=== PATIENT | female | born 1975 | race Caucasian/White ===

== ENCOUNTER → 2016-03-20 | Outpatient (CLI) | payer OTHER ==
[~2016-03-20] MED LIST: /ACETCOD2T PO; BIOT50004 PO; CARA1TAB2 PO; CLONAZEPAM; CYPROHEPTADINE OR; EFFEXOR XR PO; HAIR SKIN AND NAILS OR; HYDR10EL PO; IBUP600T PO; IBUP80TA PO; KEPP500T6 PO; KLON1TAB PO; KLONOPIN PO; LAMO200T PO; LAMO50TA PO; LEVA750T PO; LORA2TAB PO; LYRI200C PO; LYRI225C PO; LYRI300C PO; MULTCAP PO; MULTTAB4 PO; NEUR100C PO; NEUR300C PO; OMEP40CA2 PO; PERC5TAB8 OR; PERC5TAB8 PO; PERCOCET; SERO200T2 PO; SERO400T PO; SERO50TA PO; SUBO8MIS SL; TIZA4TAB OR; TRAM50TA2 OR; ULTR50TA PO; VENL150C43 PO; VENL150T PO; VENL37TA PO; VICODIN; VOLT1GEL TOP; ZOLP-189 PO; [UNRECOGNIZED DRUG - OTHER]; effexor PO; effexor XR OR; epipen; pristiq PO; suboxone OR; tylenol #4; tylenol #4 OR
--- NOTE | 2016-04-16 01:19 | ECWPNPC ---
PATIENT NAME: HANANE RAPP : 1975 GENDER: FEMALE VISIT DATE: 03/20/2016 DISCHARGE DATE: 03/20/16 1538 VISIT LOCKED DATE TIME: PHYSICIAN: GUME CANO RESOURCE: GUME CANO REASON FOR APPOINTMENT 1. POST PROCEDURE- NECK/SHOULDERS/LBP HISTORY OF PRESENT ILLNESS HISTORY OF PRESENT ILLNESS: PAIN THE PATIENT DESCRIBES THE PAIN... FALL RISK SCREENING: SCREENING :NO FALLS IN THE PAST YEAR TODAY'S VISIT: NOTES: PT IS S/P TRIGGER POINT INJECTION 02/27/16. REPORTS PAIN RELIEF IN THE INJECTED AREAS FOR 2 WEEKS AND TIGHTNESS IS BEGINNING TO RETURN. RATES PAIN TODAY 8/10. NOTES SIGNIFICANT PAIN IN LOW BACK WITH RADIATION TO LEGS. HARD TO WALK. CURRENT MEDICATIONS TAKING QUETIAPINE FUMARATE 300 MG TABLET 1/2 TAB ORALLY DAILY, NOTES: 02/26/162199 TAKING SUBOXONE 8-2 MG FILM SUBLINGUAL BID, NOTES: 02/27/161199 TAKING VENTOLIN HFA 108 (90 BASE) MCG/ACT AEROSOL SOLUTION INHALATION DIRECTED, NOTES: NONE LATELY TAKING LAMOTRIGINE 200 MG TABLET 400MG IN AM/ 200 AT NIGHT ORAL , NOTES: 02/27/16 0800 TAKING SUCRALFATE 1 GM TABLET ORAL FOUR TIMES DAILY NEEDED, NOTES: 02/27/16 0800 TAKING IBUPROFEN 600 MG TABLET ORAL EVERY 6 HRS NEEDED, NOTES: 02/27/161199 TAKING GABAPENTIN 800 MG TABLET ORAL TID, NOTES: 02/27/161199 TAKING PRAZOSIN HCL 1 MG CAPSULE 5MG AND 1MG CAP FOR TOTAL OF 6MG DOSE ORAL BEDTIME, NOTES: 02/26/162199 TAKING VITAMIN D (ERGOCALCIFEROL) 41559 UNIT CAPSULE ORAL WEEKLY, NOTES: 02/23/16 TAKING OMEPRAZOLE 40 MG CAPSULE DELAYED RELEASE ORAL ONCE DAILY, NOTES: NONE LATELY TAKING LYRICA 200 MG CAPSULE 1 CAPSULE ORALLY THREE TIMES DAILY MDD=3, NOTES: 02/27/161199 TAKING TIZANIDINE HCL 4 MG TABLET 1 TABLET ORALLY THREE TIMES A DAY, NOTES: 02/27/161199 TAKING TOPAMAX 200 MG TABLET 1 TABLET ORALLY AT BEDTIME TAKING REXULTI 1 MG TABLET 1 TABLET ORALLY ONCE A DAY DISCONTINUED CYPROHEPTADINE HCL 1 MG TABLET 5 PILLS ORAL AT NIGHT, NOTES: 02/26/162199 DISCONTINUED LATUDA 80 MG TABLET 1 TABLET WITH FOOD ORALLY ONCE A DAY, NOTES: 02/26/162199 MEDICATION LIST REVIEWED AND RECONCILED WITH THE PATIENT PAST MEDICAL HISTORY RIGHT KNEE WORSENING ARTHRITIS ANXIETY / DEPRESSION / PTSD/ SUICIDE ATTEMPT AUGUST 2013 OPIATE ABUSE PSORIASIS FIBRAMYALGIA HARD OF HEARING ALLERGIES N.K.D.A. SOCIAL HISTORY GENERAL: TOBACCO USE ARE YOU A:NONSMOKER LEARNING BARRIERS / SPECIAL NEEDS ORIENTED TO PLAN OF CARE: PATIENT, PAIN MANAGEMENT PATIENT, ORIENTED TO PLAN OF CARE: PATIENT, PAIN MANAGEMENT PATIENT. NEW PATIENT PAIN DIARY TODAY'S VISITNOTES FROM 0-10, WHAT LEVEL IS YOUR PAIN TODAY?0 PAIN CLINIC PFS, CLERGY, PUBLIC HEALTH REFERRALS PFS REFERRAL NEEDED?NO CLERGY REFERRAL NEEDED?NO PUBLIC HEALTH REFERRAL NEEDED?NO WAS THE PROVIDER NOTIFIED OF ANY PERTINENT INFO?NO PFS REFERRAL NEEDED?NO CLERGY REFERRAL NEEDED?NO PUBLIC HEALTH REFERRAL NEEDED?NO WAS THE PROVIDER NOTIFIED OF ANY PERTINENT INFO?NO PAIN IS MORE IN THE NECK NOW AND NUMBNESS TO FINGERS ON BOTH HANDS, PAIN DOWN RIGHT SHOULDER. REVIEW OF SYSTEMS CONSTITUTIONAL: ANY CHANGE IN YOUR MEDICAL CONDITION? NO . CHILLS NO . FEVER NO . INFECTION: DO YOU HAVE NEW INFECTIONS? NO . DO YOU HAVE HISTORY OF MRSA? NO . MUSCULOSKELETAL: ANY NEW PATTERNS OF PAIN OR NUMBNESS? NO . GASTROENTEROLOGY: ANY NEW CHANGE IN BOWEL CONTROL? NO . GENITOURINARY: ANY NEW CHANGE IN BLADDER CONTROL? NO . IS THERE A CHANCE YOU COULD BE ? NO . HEMATOLOGY/LYMPH: DO YOU TAKE ANY BLOOD THINNERS? (FOR EXAMPLE- COUMADIN, PLAVIX, AGGRENOX, PLATEL, PRADAXA, OR XARELTO) NO . WHEN WAS YOUR LAST DOSE? DATE: TIME: . NEUROLOGY: HAVE YOU FALLEN IN THE PAST 6 MONTHS? NO . ANY NEW EXTREMITY NUMBNESS OR WEAKNESS? NO . CARDIOLOGY: DO YOU HAVE A PACEMAKER OR DEFIBRILLATOR? NO . RESPIRATORY: HAVE YOU BEEN SICK IN THE PAST WEEK? NO . FEVER NO . FLU LIKE SYMPTOMS? NO . COUGH NO . INTEGUMENTARY: DO YOU HAVE ANY RASHES OR OPEN SORES? NO . ALLERGIC/IMMUNO: ARE YOU ALLERGIC TO SHELLFISH OR IV DYE? NO . ANY NEW ALLERGIES? NO . PSYCHIATRIC: DO YOU HAVE THOUGHTS OF HURTING YOURSELF OR SOMEONE ELSE? NO . ARE YOU ABUSED, NEGLECTED, OR IN AN UNSAFE ENVIRONMENT? NO . ENDOCRINOLOGY: ARE YOU DIABETIC? NO . OTHER: DO YOU NEED ANY PRESCRIPTIONS? YES LYRICA . IF YES, PLEASE LIST: ____ . ANY NEW PROBLEMS WITH YOUR MEDICATIONS? NO . WHEN DID YOU LAST EAT? ____ . WHEN DID YOU LAST DRINK? ____ . WHAT DID YOU LAST DRINK? ____ . NAME OF PERSON DRIVING YOU HOME? ____ . DO YOU HAVE ANY OTHER QUESTIONS OR CONCERNS NO . REVIEWED BY: PROVIDER: GUME BUSBY . VITAL SIGNS WT 166.8 LBS, HT 61", BMI 31.51 INDEX, BP 108/69 MM HG, HR 62 /MIN, RR 16 /MIN, TEMP 97.5 F, OXYGEN SAT % 98, NA INITIALS TL 1502, REVIEWED BY: AD. EXAMINATION GENERAL EXAMINATION: PSYCHALERT , ORIENTED X 3 , APPROPRIATE MOOD AND AFFECT . LUNGS:CLEAR TO AUSCULTATION BILATERALLY. HEART:HEART RATE REGULAR. MUSCULOSKELETAL:MUSCLE STRENGTH TESTING 5/5 BILATERAL UPPER AND LOWER EXTREMITIES. POINT TENDERNESS OVER CERVICAL AND LUMBAR SPINOUS PROCESSES, WITH SPECIFIC TENDERNESS WITH PALPATION BILATRALLY AT THE SACRAL ILIAC JOINTS. POSITIVE NASIM SIGN NOTED BILATERALLY. SLOW TO RISE TO STANDING POSITION - GAIT ANTALGIC.. ASSESSMENTS MYALGIA - M79.1 (PRIMARY) SACROILIITIS - M46.1 TREATMENT MYALGIA STOP TIZANIDINE HCL TABLET, 4 MG, 1 TABLET, ORALLY, THREE TIMES A DAY, NOTES: 02/27/16 1200 START METHOCARBAMOL TABLET, 500 MG, 1 TAB, ORALLY, EVERY 8 HRS, 30 DAY(S), 90 TABLET, REFILLS 2 SACROILIITIS REFILL LYRICA CAPSULE, 200 MG, 1 CAPSULE, ORALLY, THREE TIMES DAILY MDD=3, 30 DAY(S), 90, REFILLS 3 INJECTION ANESTHETIC SACROILIAC JOINTGUME CANO 03/20/2016 3:20:53 PM > BILATERAL PREVENTIVE MEDICINE PAIN CLINIC TEACHING: PROCEDURE TEACHING PRINTED INFORMATION ON SIJ INJECTION GIVEN TO AND EXPLAINED TO PAT.. PROCEDURE CODES FA211 ESTABILISHED PATIENT [facility] FACILITY CHARGE FOLLOW UP AFTER INJECTION (REASON: CHECK AUTH FOR YEISON SIJ) ELECTRONICALLY SIGNED BY SUMI KIM ON 04/14/2016 AT 08:42 AM EST DISCLAIMER : THIS IS A VISIT SUMMARY EXTRACTED FROM THE [facility] CHART. IT IS NOT A COPY OF THE [facility] PROGRESS NOTE. MTDD
== END ==
LOC: M PAIN 15:00
PROVIDERS: ATTEND Nurse Practitioner Family
DX: Z09 Encounter for follow-up examination after completed treatment for conditions other than malignant neoplasm (principal); G89.29 Other chronic pain; M79.7 Fibromyalgia; M46.1 Sacroiliitis, not elsewhere classified; M17.11 Unilateral primary osteoarthritis, right knee; F41.9 Anxiety disorder, unspecified; F32.9 Major depressive disorder, single episode, unspecified; F43.10 Post-traumatic stress disorder, unspecified; L40.9 Psoriasis, unspecified; H90.5 Unspecified sensorineural hearing loss; Z79.1 Long term (current) use of non-steroidal anti-inflammatories (NSAID); Z86.59 Personal history of other mental and behavioral disorders; Z91.5 Personal history of self-harm

== ENCOUNTER → 2016-05-08 | Outpatient (CLI) | payer OTHER ==
--- NOTE | 2016-05-09 00:23 | ECWPNPC ---
PATIENT NAME: HANANE RAPP : 1975 GENDER: FEMALE VISIT DATE: 05/08/2016 DISCHARGE DATE: 05/08/16 1510 VISIT LOCKED DATE TIME: PHYSICIAN: GUME CANO RESOURCE: GUME ACNO REASON FOR APPOINTMENT 1. POST PROCEDURE HISTORY OF PRESENT ILLNESS HISTORY OF PRESENT ILLNESS: PAIN THE PATIENT DESCRIBES THE PAIN... FALL RISK SCREENING: SCREENING :NO FALLS IN THE PAST YEAR TODAY'S VISIT: NOTES: IS S/P SIJ 04/17/16 WITH 75% RELIEF. PAIN RADIATING TO LEGS IS IMPROVED. WAS ABLE TO SLEEP. WOULD LIKE TO REPEAT TPI TO LOW BACK AND SHOULDERS. NOTES DISCOMFORT AND PAIN ACROSS THE LOW BACK (WORST)AND AT THE NECK AND SHOULDERS. IS FRUSTRATED WITH HOW POORLY SHE FEELS. CURRENT MEDICATIONS TAKING QUETIAPINE FUMARATE 300 MG TABLET 1/2 TAB ORALLY DAILY TAKING SUBOXONE 8-2 MG FILM SUBLINGUAL BID TAKING LAMOTRIGINE 200 MG TABLET 400MG IN AM/ 200 AT NIGHT ORAL TAKING IBUPROFEN 600 MG TABLET ORAL EVERY 6 HRS NEEDED TAKING SUCRALFATE 1 GM TABLET ORAL FOUR TIMES DAILY NEEDED TAKING GABAPENTIN 800 MG TABLET ORAL TID TAKING PRAZOSIN HCL 1 MG CAPSULE 5MG AND 1MG CAP FOR TOTAL OF 6MG DOSE ORAL BEDTIME TAKING VITAMIN D (ERGOCALCIFEROL) [id number] UNIT CAPSULE ORAL WEEKLY TAKING OMEPRAZOLE 40 MG CAPSULE DELAYED RELEASE ORAL ONCE DAILY TAKING TOPAMAX 200 MG TABLET 1 TABLET ORALLY AT BEDTIME TAKING LYRICA 200 MG CAPSULE 1 CAPSULE ORALLY THREE TIMES DAILY MDD=3 TAKING METHOCARBAMOL 500 MG TABLET 1 TAB ORALLY EVERY 8 HRS NOT-TAKING VENTOLIN HFA 108 (90 BASE) MCG/ACT AEROSOL SOLUTION INHALATION DIRECTED NOT-TAKING REXULTI 1 MG TABLET 1 TABLET ORALLY ONCE A DAY MEDICATION LIST REVIEWED AND RECONCILED WITH THE PATIENT PAST MEDICAL HISTORY RIGHT KNEE WORSENING ARTHRITIS ANXIETY / DEPRESSION / PTSD/ SUICIDE ATTEMPT AUGUST 2013 OPIATE ABUSE PSORIASIS FIBRAMYALGIA HARD OF HEARING ALLERGIES N.K.D.A. SOCIAL HISTORY GENERAL: TOBACCO USE ARE YOU A:CURRENT SMOKER HOW MANY CIGARETTES A DAY DO YOU SMOKE?11-20 HOW SOON AFTER YOU WAKE UP DO YOU SMOKE YOUR FIRST CIGARETTE?WITHIN 5 MIN HOW OFTEN DO YOU SMOKE CIGARETTES?EVERY DAY PATIENT COUNSELED ON THE DANGERS OF TOBACCO USE AND URGED TO QUIT: COUNCELLED ON THE IMPORTANCE OF QUITTING ARE YOU INTERESTED IN QUITTING?NOT READY TO QUIT LEARNING BARRIERS / SPECIAL NEEDS ORIENTED TO PLAN OF CARE: PATIENT, PAIN MANAGEMENT PATIENT, ORIENTED TO PLAN OF CARE: PATIENT, PAIN MANAGEMENT PATIENT. NEW PATIENT PAIN DIARY TODAY'S VISITNOTES FROM 0-10, WHAT LEVEL IS YOUR PAIN TODAY?0 PAIN CLINIC PFS, CLERGY, PUBLIC HEALTH REFERRALS PFS REFERRAL NEEDED?NO CLERGY REFERRAL NEEDED?NO PUBLIC HEALTH REFERRAL NEEDED?NO WAS THE PROVIDER NOTIFIED OF ANY PERTINENT INFO?NO PFS REFERRAL NEEDED?NO CLERGY REFERRAL NEEDED?NO PUBLIC HEALTH REFERRAL NEEDED?NO WAS THE PROVIDER NOTIFIED OF ANY PERTINENT INFO?NO REVIEW OF SYSTEMS CONSTITUTIONAL: ANY CHANGE IN YOUR MEDICAL CONDITION? NO . CHILLS NO . FEVER NO . INFECTION: DO YOU HAVE NEW INFECTIONS? NO . DO YOU HAVE HISTORY OF MRSA? NO . MUSCULOSKELETAL: ANY NEW PATTERNS OF PAIN OR NUMBNESS? NO . GASTROENTEROLOGY: ANY NEW CHANGE IN BOWEL CONTROL? NO . GENITOURINARY: ANY NEW CHANGE IN BLADDER CONTROL? NO . IS THERE A CHANCE YOU COULD BE ? NO . HEMATOLOGY/LYMPH: DO YOU TAKE ANY BLOOD THINNERS? (FOR EXAMPLE- COUMADIN, PLAVIX, AGGRENOX, PLATEL, PRADAXA, OR XARELTO) NO . WHEN WAS YOUR LAST DOSE? DATE: TIME: . NEUROLOGY: HAVE YOU FALLEN IN THE PAST 6 MONTHS? NO . ANY NEW EXTREMITY NUMBNESS OR WEAKNESS? NO . CARDIOLOGY: DO YOU HAVE A PACEMAKER OR DEFIBRILLATOR? NO . RESPIRATORY: HAVE YOU BEEN SICK IN THE PAST WEEK? NO . FEVER NO . FLU LIKE SYMPTOMS? NO . COUGH NO . INTEGUMENTARY: DO YOU HAVE ANY RASHES OR OPEN SORES? NO . ALLERGIC/IMMUNO: ARE YOU ALLERGIC TO SHELLFISH OR IV DYE? NO . ANY NEW ALLERGIES? NO . PSYCHIATRIC: DO YOU HAVE THOUGHTS OF HURTING YOURSELF OR SOMEONE ELSE? NO . ARE YOU ABUSED, NEGLECTED, OR IN AN UNSAFE ENVIRONMENT? NO . ENDOCRINOLOGY: ARE YOU DIABETIC? NO . OTHER: DO YOU NEED ANY PRESCRIPTIONS? NO . IF YES, PLEASE LIST: ____ . ANY NEW PROBLEMS WITH YOUR MEDICATIONS? NO . WHEN DID YOU LAST EAT? ____ . WHEN DID YOU LAST DRINK? ____ . WHAT DID YOU LAST DRINK? ____ . NAME OF PERSON DRIVING YOU HOME? ____ . DO YOU HAVE ANY OTHER QUESTIONS OR CONCERNS NO . REVIEWED BY: PROVIDER: GUME BUSBY . VITAL SIGNS WT 163.8 LBS, HT 61", BMI 30.95 INDEX, BP 102/64 MM HG, HR 64 /MIN, RR 18 /MIN, TEMP 96.9 F, OXYGEN SAT % 96, NA INITIALS TL 1402, REVIEWED BY: AD. EXAMINATION GENERAL EXAMINATION: PSYCHALERT , ORIENTED X 3 , QUIET. LUNGS:BILATERAL WHEEZES, NO RALES. HEART:HEART RATE REGULAR. MUSCULOSKELETAL:MILD TENDERNESS OVER BILATERAL SIJ. , TRIGGER POINTS AND TIGHT FIBROUS BANDS IDENTIFIED OVER LUMBAR PARAVEREBRAL MUSCLES AND INTO THE SACRUM, WELL ACROSS THE TRAPEZIUS MUSCLES. DECREASED ROM WITH NECK FLEXION, EXTENSION AND ROTATION WELL AT LOW BACK. , MUSCLE STRENGTH TESTING 5/5 BILATERALUPPER AND LOWER EXTREMITIES. GAIT IS STIFF, WIDEBASED AND ANTALGIC. ASSESSMENTS MYALGIA - M79.1 (PRIMARY) SACROILIITIS - M46.1 TREATMENT MYALGIA TRIGGER POINT 3 + GUME CAMILO 05/08/2016 3:00:00 PM > LOW BACK NOTES: WALK DAILYDO SHOULDER EXERCISES DAILY. WORK WITH THERAPIST ON [facility] FOR PAIN CONTROL. PROCEDURE CODES FA211 ESTABILISHED PATIENT [facility] CHARGE DISPOSITION & COMMUNICATION FOLLOW UP SCHED FOR TPI LOW BACK AND THEN 2 WEEKS LATER TO NECK/SHOULDERS (REASON: CHECK AUTH FOR TPI TO LOW BACK AND 2 WEEKS LATER TO NECK) ELECTRONICALLY SIGNED BY SUMI KIM ON 05/08/2016 AT 04:23 PM EST DISCLAIMER : THIS IS A VISIT SUMMARY EXTRACTED FROM THE [facility] [employer] CHART. IT IS NOT A COPY OF THE [facility] [employer] PROGRESS NOTE. SUNNY
== END ==
LOC: M PAIN 14:00
PROVIDERS: ATTEND Nurse Practitioner Family
DX: Z09 Encounter for follow-up examination after completed treatment for conditions other than malignant neoplasm (principal); M46.1 Sacroiliitis, not elsewhere classified; M54.2 Cervicalgia; M79.1 Myalgia; M25.511 Pain in right shoulder; M54.5 Low back pain; M25.512 Pain in left shoulder; F41.9 Anxiety disorder, unspecified; F32.9 Major depressive disorder, single episode, unspecified; F43.10 Post-traumatic stress disorder, unspecified; F11.10 Opioid abuse, uncomplicated; M17.11 Unilateral primary osteoarthritis, right knee; L40.9 Psoriasis, unspecified; M79.7 Fibromyalgia; H91.90 Unspecified hearing loss, unspecified ear; F17.210 Nicotine dependence, cigarettes, uncomplicated; Z79.1 Long term (current) use of non-steroidal anti-inflammatories (NSAID); Z79.899 Other long term (current) drug therapy; Z91.5 Personal history of self-harm

== ENCOUNTER → 2016-06-17 | Outpatient (CLI) | payer OTHER ==
[~2016-06-17] MED LIST changes: +BUPIVACAINE HCL 0.25% 10 ML VIAL As Ordered ONE; +BUPIVACAINE HCL 0.25% 30 ML VIAL As Ordered ONE; +TRIAMCINOLONE ACETONIDE SUSP 40 MG/ML VIAL (J3301) As Ordered ONE; +diazePAM 5 MG TAB As Ordered ONE
--- NOTE | 2016-06-29 00:22 | ECWPNPC ---
PATIENT NAME: HANANE RAPP : 1975 GENDER: FEMALE VISIT DATE: 06/17/2016 DISCHARGE DATE: 06/17/16 1553 VISIT LOCKED DATE TIME: PHYSICIAN: MARY LOU ISLAS RESOURCE: MARY LOU ISLAS REASON FOR APPOINTMENT 1. SHOULDERS HISTORY OF PRESENT ILLNESS HISTORY OF PRESENT ILLNESS: PAIN THE PATIENT DESCRIBES THE PAIN... FALL RISK SCREENING: SCREENING :NO FALLS IN THE PAST YEAR CURRENT MEDICATIONS TAKING SUBOXONE 8-2 MG FILM SUBLINGUAL BID, NOTES: 06/17/16 0800 TAKING LAMOTRIGINE 200 MG TABLET 400MG IN AM/ 200 AT NIGHT ORAL , NOTES: 06/17/16 08 TAKING IBUPROFEN 600 MG TABLET ORAL EVERY 6 HRS NEEDED, NOTES: 06/17/16 08 TAKING SUCRALFATE 1 GM TABLET ORAL FOUR TIMES DAILY NEEDED, NOTES: NONE RECENT TAKING GABAPENTIN 800 MG TABLET ORAL TID, NOTES: 06/17/16 08 TAKING PRAZOSIN HCL 1 MG CAPSULE 5MG AND 1MG CAP FOR TOTAL OF 6MG DOSE ORAL BEDTIME, NOTES: 06/16/16 2300 TAKING VITAMIN D (ERGOCALCIFEROL) [id number] UNIT CAPSULE ORAL WEEKLY, NOTES: 06/14/16 TAKING OMEPRAZOLE 40 MG CAPSULE DELAYED RELEASE ORAL ONCE DAILY PRN, NOTES: NONE RECENT TAKING TOPAMAX 200 MG TABLET 1 TABLET ORALLY IN A.M. & AT BEDTIME, NOTES: 06/17/16 08 TAKING LYRICA 200 MG CAPSULE 1 CAPSULE ORALLY THREE TIMES DAILY MDD=3, NOTES: 06/17/16 08 TAKING METHOCARBAMOL 500 MG TABLET 1 TAB ORALLY EVERY 8 HRS, NOTES: 06/17/16 08 NOT-TAKING VENTOLIN HFA 108 (90 BASE) MCG/ACT AEROSOL SOLUTION INHALATION DIRECTED NOT-TAKING REXULTI 1 MG TABLET 1 TABLET ORALLY ONCE A DAY DISCONTINUED QUETIAPINE FUMARATE 300 MG TABLET 1/2 TAB ORALLY DAILY MEDICATION LIST REVIEWED AND RECONCILED WITH THE PATIENT PAST MEDICAL HISTORY RIGHT KNEE WORSENING ARTHRITIS ANXIETY / DEPRESSION / PTSD/ SUICIDE ATTEMPT AUGUST 2013 OPIATE ABUSE PSORIASIS FIBRAMYALGIA HARD OF HEARING ALLERGIES N.K.D.A. SOCIAL HISTORY GENERAL: TOBACCO USE ARE YOU A:CURRENT SMOKER HOW MANY CIGARETTES A DAY DO YOU SMOKE?21-30 HOW SOON AFTER YOU WAKE UP DO YOU SMOKE YOUR FIRST CIGARETTE?WITHIN 5 MIN HOW OFTEN DO YOU SMOKE CIGARETTES?EVERY DAY PATIENT COUNSELED ON THE DANGERS OF TOBACCO USE AND URGED TO QUIT:06/17/2016 ARE YOU INTERESTED IN QUITTING?NOT READY TO QUIT COUNSELED THE PATIENT ON SMOKING EFFECTS, EDUCATION [id number] PAIN CLINIC PFS, CLERGY, PUBLIC HEALTH REFERRALS CLERGY REFERRAL NEEDED?NO WAS THE PROVIDER NOTIFIED OF ANY PERTINENT INFO?NO PFS REFERRAL NEEDED?NO PUBLIC HEALTH REFERRAL NEEDED?NO PATIENT: ____. PAIN IS MORE IN THE NECK NOW AND NUMBNESS TO FINGERS ON BOTH HANDS, PAIN DOWN RIGHT SHOULDER. REVIEW OF SYSTEMS CONSTITUTIONAL: ANY CHANGE IN YOUR MEDICAL CONDITION? NO . CHILLS NO . FEVER NO . INFECTION: DO YOU HAVE NEW INFECTIONS? NO . DO YOU HAVE HISTORY OF MRSA? NO . MUSCULOSKELETAL: ANY NEW PATTERNS OF PAIN OR NUMBNESS? NO . GASTROENTEROLOGY: ANY NEW CHANGE IN BOWEL CONTROL? NO . GENITOURINARY: ANY NEW CHANGE IN BLADDER CONTROL? NO . IS THERE A CHANCE YOU COULD BE ? NO . HEMATOLOGY/LYMPH: DO YOU TAKE ANY BLOOD THINNERS? (FOR EXAMPLE- COUMADIN, PLAVIX, AGGRENOX, PLATEL, PRADAXA, OR XARELTO) NO . WHEN WAS YOUR LAST DOSE? DATE: TIME: . NEUROLOGY: HAVE YOU FALLEN IN THE PAST 6 MONTHS? NO . ANY NEW EXTREMITY NUMBNESS OR WEAKNESS? YES, TINGLING IN FINGERS HAS INCREASED AND PAIN IN NECK IS SO SEVERE IT IS DEBILITATING--IT THROBS AND MANNING TO THE POINT SHE CAN'T MOVE.&NBSP;. CARDIOLOGY: DO YOU HAVE A PACEMAKER OR DEFIBRILLATOR? NO . RESPIRATORY: HAVE YOU BEEN SICK IN THE PAST WEEK? NO . FEVER NO . FLU LIKE SYMPTOMS? NO . COUGH NO . INTEGUMENTARY: DO YOU HAVE ANY RASHES OR OPEN SORES? NO . ALLERGIC/IMMUNO: ARE YOU ALLERGIC TO SHELLFISH OR IV DYE? NO . ANY NEW ALLERGIES? NO . PSYCHIATRIC: DO YOU HAVE THOUGHTS OF HURTING YOURSELF OR SOMEONE ELSE? NO . ARE YOU ABUSED, NEGLECTED, OR IN AN UNSAFE ENVIRONMENT? NO . ENDOCRINOLOGY: ARE YOU DIABETIC? NO . OTHER: DO YOU NEED ANY PRESCRIPTIONS? NO . IF YES, PLEASE LIST: ____ . ANY NEW PROBLEMS WITH YOUR MEDICATIONS? NO . WHEN DID YOU LAST EAT? ____06/16/16 12M . WHEN DID YOU LAST DRINK? ____06/17/16 0800 . WHAT DID YOU LAST DRINK? ____WATER . NAME OF PERSON DRIVING YOU HOME? ____[employer] . DO YOU HAVE ANY OTHER QUESTIONS OR CONCERNS NO . REVIEWED BY: PROVIDER: . VITAL SIGNS WT 163 LBS, HT 61", BMI 30.80 INDEX, BP 96/59 MM HG, HR 62 /MIN, RR 18 /MIN, TEMP 98.0 F, OXYGEN SAT % 96%, NA INITIALS [id number], REVIEWED BY: AD. ASSESSMENTS MYALGIA - M79.1 (PRIMARY) PROCEDURES PN TRIGGER POINT INJECTION WITH STEROIDS PRE PROCEDURE DIAGNOSIS 1. MYALGIA 2. PAIN AT BILATERAL CERVICAL AREA POST PROCEDURE DIAGNOSIS 1. MYALGIA 2. PAIN AT BILATERAL CERVICAL AREA PROCEDURE TRIGGER POINT INJECTION AT BILATERAL CERVICAL AREA SURGEON DR. 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 I EVALUATE THE PATIENT AND REVIEWED THE CHART. THERE IS EVIDENCE OF BANDS OF TISSUE WITH RESTRICTION OF MOVEMENT AND PRESENCE OF TRIGGER POINT AT THE AFFECTED AREA. I WENT OVER THE RISKS, ALTERNATIVES, AND BENEFITS ASSOCIATED WITH THIS PROCEDURE. THE PATIENT WOULD LIKE TO PROCEED AND GIVE CONSENT TO PERFORMED THE PROCEDURE. THE PATIENT DENIES UNEXPLAINABLE WEIGHT LOSS, FEVER, CHILLS, OR NEW CHANGES IN URINARY OR BOWEL CONTROL DESCRIPTION OF PROCEDURE THE PATIENT WAS BROUGHT TO THE PROCEDURE ROOM AND PLACED IN THE SITTING POSITION. THE AREA WAS CLEANED WITH ALCOHOL. THE PROCEDURE WAS DONE USING ASEPTIC STERILE TECHNIQUE. I CHECKED LATERALITY AND THE LEVEL WHERE THE PROCEDURE WAS GOING TO BE PERFORMED WITH THE PATIENT AND THE SUPPORTING STAFF AT THE MOMENT OF THE TIME OUT IN THE PROCEDURE ROOM. USING A 25-GAUGE NEEDLE, TRIGGER POINTS WERE INJECTED AT THE RIGHT AND LEFT CERVICAL AREA WITH A TOTAL OF 40 ML OF BUPIVACAINE 0.25% AND KENALOG 40 MG. THERE WAS NO EVIDENCE OF BLOOD, PARESTHESIA OR CEREBROSPINAL FLUID DURING THE PROCEDURE. THE PATIENT WAS SENT TO THE RECOVERY ROOM. THE PATIENT WAS MOVING THE EXTREMITIES AND DOING WELL. THERE WAS NO COMPLICATION DURING THE PROCEDURE POST PROCEDURE NOTE THE PATIENT WILL BE SEEN IN A FOLLOW UP IN THE NEXT FEW WEEKS. INSTRUCTIONS WERE GIVEN, QUESTIONS WERE ANSWERED, AND THE PATIENT EXPRESSED UNDERSTANDING AND AGREES WITH THE PLAN. INSTRUCTIONS WERE GIVEN, QUESTIONS WERE ANSWERED, PATIENT REPORTS UNDERSTANDING AND AGREES WITH THE PLAN. I, BRITTA VENTURA, DOCUMENTED THE ABOVE INFORMATION ACTING A SCRIBE FOR DR. ISLAS. I HAVE REVIEWED THE ABOVE DOCUMENT, WRITTEN BY BRITTA VARGAS AND I VERIFY THAT IT IS ACCURATE PROCEDURE CODES 16514 INJ TRIGGER POINT / MUSC DISPOSITION & COMMUNICATION FOLLOW UP 3 WEEKS ELECTRONICALLY SIGNED BY MARY LOU ISLAS MD ON 06/28/2016 AT 04:49 PM EDT DISCLAIMER : THIS IS A VISIT SUMMARY EXTRACTED FROM THE [facility] CHART. IT IS NOT A COPY OF THE [facility] PROGRESS NOTE. SUNNY
== END | disposition home or self-care (01) ==
LOC: M PAIN 14:20
PROVIDERS: ATTEND Anesthesiology
DX: G89.29 Other chronic pain (principal); M79.7 Fibromyalgia; F41.9 Anxiety disorder, unspecified; F33.9 Major depressive disorder, recurrent, unspecified; L40.9 Psoriasis, unspecified; F11.21 Opioid dependence, in remission; Z79.899 Other long term (current) drug therapy; F17.210 Nicotine dependence, cigarettes, uncomplicated

== ENCOUNTER → 2016-07-08 | Outpatient (REF) | payer OTHER ==
[~2016-07-08] MED LIST changes: -BUPIVACAINE HCL 0.25% 10 ML VIAL As Ordered ONE; -BUPIVACAINE HCL 0.25% 30 ML VIAL As Ordered ONE; -TRIAMCINOLONE ACETONIDE SUSP 40 MG/ML VIAL (J3301) As Ordered ONE; -diazePAM 5 MG TAB As Ordered ONE
== END ==
LOC: M LAB REF 16:25
PROVIDERS: ATTEND Family Medicine Addiction Medicine
DX: N30.00 Acute cystitis without hematuria (principal)

== ENCOUNTER → 2016-07-10 | Outpatient (CLI) | payer OTHER ==
[~2016-07-10] MED LIST changes: +BENA25CA4 PO; +GABA800T PO; +KEFL500C7 PO; +LATU1TAB PO; +METH-107 PO; +PRAZ5CAP PO; +TOPI200T4 PO
--- NOTE | 2016-08-04 00:02 | ECWPNPC ---
PATIENT NAME: HANANE RAPP : 1975 GENDER: FEMALE VISIT DATE: 07/10/2016 DISCHARGE DATE: 07/10/16 1447 VISIT LOCKED DATE TIME: PHYSICIAN: GUME CANO RESOURCE: GUME CANO REASON FOR APPOINTMENT 1. POST TPI HISTORY OF PRESENT ILLNESS HISTORY OF PRESENT ILLNESS: PAIN THE PATIENT DESCRIBES THE PAIN... FALL RISK SCREENING: SCREENING :NO FALLS IN THE PAST YEAR TODAY'S VISIT: NOTES: STATES SHE IS FEELING TERRIBLE. RATES PAIN TODAY 10/10. NECK IS GIVING MIGRAINES. NOTES PAIN IS RADIATING TO SHOULDERS AMD TO HANDS. MUSCLES ARE VERY TIGHT AND SORE. NOT SLEEPING DUE TO PAIN AND SPASM. CURRENT MEDICATIONS TAKING SUBOXONE 8-2 MG FILM SUBLINGUAL BID, NOTES: 06/17/16 08 TAKING LAMOTRIGINE 200 MG TABLET 400MG IN AM/ 200 AT NIGHT ORAL , NOTES: 06/17/16 08 TAKING IBUPROFEN 600 MG TABLET ORAL EVERY 6 HRS NEEDED, NOTES: 06/17/16799 TAKING SUCRALFATE 1 GM TABLET ORAL FOUR TIMES DAILY NEEDED, NOTES: NONE RECENT TAKING GABAPENTIN 800 MG TABLET ORAL TID, NOTES: 06/17/16 08 TAKING PRAZOSIN HCL 1 MG CAPSULE 5MG AND 1MG CAP FOR TOTAL OF 6MG DOSE ORAL BEDTIME, NOTES: 06/16/16 2300 TAKING VITAMIN D (ERGOCALCIFEROL) 84568 UNIT CAPSULE ORAL WEEKLY, NOTES: 06/14/16 TAKING OMEPRAZOLE 40 MG CAPSULE DELAYED RELEASE ORAL ONCE DAILY PRN, NOTES: NONE RECENT TAKING TOPAMAX 200 MG TABLET 1 TABLET ORALLY IN A.M. & AT BEDTIME, NOTES: 06/17/16799 TAKING LYRICA 200 MG CAPSULE 1 CAPSULE ORALLY THREE TIMES DAILY MDD=3, NOTES: 06/17/16799 TAKING METHOCARBAMOL 500 MG TABLET 1 TAB ORALLY EVERY 8 HRS, NOTES: 06/17/16799 NOT-TAKING VENTOLIN HFA 108 (90 BASE) MCG/ACT AEROSOL SOLUTION INHALATION DIRECTED NOT-TAKING REXULTI 1 MG TABLET 1 TABLET ORALLY ONCE A DAY MEDICATION LIST REVIEWED AND RECONCILED WITH THE PATIENT PAST MEDICAL HISTORY RIGHT KNEE WORSENING ARTHRITIS ANXIETY / DEPRESSION / PTSD/ SUICIDE ATTEMPT AUGUST 2013 OPIATE ABUSE PSORIASIS FIBRAMYALGIA HARD OF HEARING ALLERGIES BEE STINGS: ANAPHYLAXIS: ALLERGY SURGICAL HISTORY LEFT FOOT BUNIONECTOMY GASTRIC BYPASS 2011 BRAIN SURGURY AT AGE 4 TRACHEOSTOMY APR 2010 SOCIAL HISTORY GENERAL: TOBACCO USE ARE YOU A:CURRENT SMOKER HOW MANY CIGARETTES A DAY DO YOU SMOKE?21-30 HOW SOON AFTER YOU WAKE UP DO YOU SMOKE YOUR FIRST CIGARETTE?WITHIN 5 MIN HOW OFTEN DO YOU SMOKE CIGARETTES?EVERY DAY PATIENT COUNSELED ON THE DANGERS OF TOBACCO USE AND URGED TO QUIT:06/17/2016 ARE YOU INTERESTED IN QUITTING?THINKING ABOUT QUITTING PREVIOUS QUIT ATTEMPTS?YES, MORE THAN 6 MONTHS AGO. COUNSELED THE PATIENT ON SMOKING CESSATION, EDUCATION [id number]/2017 PAIN CLINIC PFS, CLERGY, PUBLIC HEALTH REFERRALS CLERGY REFERRAL NEEDED?NO WAS THE PROVIDER NOTIFIED OF ANY PERTINENT INFO?NO PFS REFERRAL NEEDED?NO PUBLIC HEALTH REFERRAL NEEDED?NO PATIENT: ____. PAIN IS MORE IN THE NECK NOW AND NUMBNESS TO FINGERS ON BOTH HANDS, PAIN DOWN RIGHT SHOULDER. HOSPITALIZATION/MAJOR DIAGNOSTIC PROCEDURE SEE ABOVE REVIEW OF SYSTEMS CONSTITUTIONAL: ANY CHANGE IN YOUR MEDICAL CONDITION? NO . CHILLS NO . FEVER NO . INFECTION: DO YOU HAVE NEW INFECTIONS? NO . DO YOU HAVE HISTORY OF MRSA? NO . MUSCULOSKELETAL: ANY NEW PATTERNS OF PAIN OR NUMBNESS? YES, INCREASED PAIN AND NUMBNESS TO BILAT FINGERS AND FEET. . GASTROENTEROLOGY: ANY NEW CHANGE IN BOWEL CONTROL? NO . GENITOURINARY: ANY NEW CHANGE IN BLADDER CONTROL? NO . IS THERE A CHANCE YOU COULD BE ? NO . HEMATOLOGY/LYMPH: DO YOU TAKE ANY BLOOD THINNERS? (FOR EXAMPLE- COUMADIN, PLAVIX, AGGRENOX, PLATEL, PRADAXA, OR XARELTO) NO . WHEN WAS YOUR LAST DOSE? DATE: TIME: . NEUROLOGY: HAVE YOU FALLEN IN THE PAST 6 MONTHS? NO . ANY NEW EXTREMITY NUMBNESS OR WEAKNESS? NO . CARDIOLOGY: DO YOU HAVE A PACEMAKER OR DEFIBRILLATOR? NO . RESPIRATORY: HAVE YOU BEEN SICK IN THE PAST WEEK? NO . FEVER NO . FLU LIKE SYMPTOMS? NO . COUGH NO . INTEGUMENTARY: DO YOU HAVE ANY RASHES OR OPEN SORES? NO . ALLERGIC/IMMUNO: ARE YOU ALLERGIC TO SHELLFISH OR IV DYE? NO . ANY NEW ALLERGIES? NO . PSYCHIATRIC: DO YOU HAVE THOUGHTS OF HURTING YOURSELF OR SOMEONE ELSE? NO . ARE YOU ABUSED, NEGLECTED, OR IN AN UNSAFE ENVIRONMENT? NO . ENDOCRINOLOGY: ARE YOU DIABETIC? NO . OTHER: DO YOU NEED ANY PRESCRIPTIONS? YES . IF YES, PLEASE LIST: LYRICA____ . WHEN DID YOU LAST EAT? ____ . WHEN DID YOU LAST DRINK? ____ . WHAT DID YOU LAST DRINK? ____ . NAME OF PERSON DRIVING YOU HOME? ____ . DO YOU HAVE ANY OTHER QUESTIONS OR CONCERNS NO . REVIEWED BY: PROVIDER: GUME BUSBY . VITAL SIGNS WT 148.2 LBS, HT 61", BMI 28.00 INDEX, BP 113/66 MM HG, HR 90 /MIN, RR 18 /MIN, TEMP 98.9 F, OXYGEN SAT % 93%, SAFE IN ENV? (Y/N) YES, NA INITIALS AW 1350, REVIEWED BY: EM. EXAMINATION GENERAL EXAMINATION: GENERAL APPEARANCE:USING ARTIFICIAL TANNING SOLUTION - HAS BLOTCHES AND DARK SPOTS ON FACE AND UNDER EYES. PSYCHALERT , ORIENTED X 3 . LUNGS:CLEAR TO AUSCULTATION BILATERALLY. HEART:HEART RATE REGULAR. MUSCULOSKELETAL:MUSCLE STRENGTH TESTING 5/5 BILATERAL UPPER AND LOWER EXTREMITIES. , TRIGGER POINTS AND TIGHT FIBROUS BANDS IDENTIFIED OVER CERVICAL PARASPINOUS MUSCLES AND ACROSS THE TRAPEZIUS BILATERALLY. POINT TENDERNESS OVER BILATERAL OCCIPTIAL NOTCH REGION. DECREASED ROM WITH NECK FLEXION, EXTENSION, ROTATION. NEUROLOGIC EXAM:DTR'S TRACE TO ABSENT IN YEISON UPPER AND LOEER EXTREMITIES. NO SENS DEF TO LIGHT TOUCH. ASSESSMENTS MYALGIA - M79.1 (PRIMARY) OTHER CERVICAL DISC DISPLACEMENT, MID-CERVICAL REGION, UNSPECIFIED LEVEL - M50.220 CERVICAL RADICULOPATHY AT C6 - M54.12 TREATMENT MYALGIA REFILL LYRICA CAPSULE, 200 MG, 1 CAPSULE, ORALLY, THREE TIMES DAILY MDD=3, 30 DAY(S), 90, REFILLS 3 START SOMA TABLET, 350 MG, 1 TABLET NEEDED, ORALLY, DAILY AT HS MDD=1, 30 DAY(S), 30, REFILLS 0 [facility] MRI SPINE, CERVICAL WITHOUT [id number],SUSAN M 07/10/2016 2:28:37 PM > CERVICAL DISC DOSPLACEMENT CERVICAL EPIDURAL RIGHT NOTES: CERVICAL EPIDURAL INJECTION: YOUR EXPERIENCE MATERIAL WAS PRINTED,CERVICAL EPIDURAL INJECTION MATERIAL WAS PRINTED. [facility] REASON:CERVICAL DISC EXTRUSION WITH INCREASED RADICULAR SYMPTOMS PROCEDURE CODES FA211 ESTABILISHED PATIENT [facility] FACILITY CHARGE DISPOSITION & COMMUNICATION FOLLOW UP AFTER INJECTION (REASON: CHECK AUTH FOR CESB) ELECTRONICALLY SIGNED BY SUMI KIM ON 08/03/2016 AT 05:10 PM EDT DISCLAIMER : THIS IS A VISIT SUMMARY EXTRACTED FROM THE [employer] CHART. IT IS NOT A COPY OF THE [employer] PROGRESS NOTE. SUNNY
== END | disposition home or self-care (01) ==
LOC: M PAIN 14:00
PROVIDERS: ATTEND Nurse Practitioner Family
DX: G89.29 Other chronic pain (principal); M79.1 Myalgia; M50.220 Other cervical disc displacement, mid-cervical region, unspecified level; M54.12 Radiculopathy, cervical region; F41.9 Anxiety disorder, unspecified; F33.9 Major depressive disorder, recurrent, unspecified; L40.9 Psoriasis, unspecified; M17.11 Unilateral primary osteoarthritis, right knee; F43.10 Post-traumatic stress disorder, unspecified; Z91.5 Personal history of self-harm; Z98.84 Bariatric surgery status; F11.21 Opioid dependence, in remission; Z79.899 Other long term (current) drug therapy; Z91.030 Bee allergy status; F17.210 Nicotine dependence, cigarettes, uncomplicated

== ENCOUNTER 2016-08-07 14:53 | Emergency (ER) | payer OTHER ==
[~2016-08-07] VITALS: Ht 154.9 cm; Wt 63.0 kg
[~2016-08-07 14:53] MED LIST changes: -BENA25CA4 PO; -GABA800T PO; -KEFL500C7 PO; -LATU1TAB PO; -METH-107 PO; -PRAZ5CAP PO; -TOPI200T4 PO
[2016-08-07 14:54] VITALS: BP 111/66
[2016-08-07] MEDS ORDERED: LATU1TAB PO (15:15)
[2016-08-07] MEDS ORDERED: GABA800T PO (15:15)
[2016-08-07] MEDS ORDERED: PRAZ5CAP PO (15:15)
[2016-08-07] MEDS ORDERED: LYRI200C PO (15:15)
[2016-08-07] MEDS ORDERED: TOPI200T4 PO (15:17)
[2016-08-07] MEDS ORDERED: METH-107 PO (15:17)
[2016-08-07] MEDS ORDERED: KEFL500C7 PO (16:06)
[2016-08-07] MEDS ORDERED: BENA25CA4 PO (16:06)
== END 2016-08-07 16:13 | disposition home or self-care (01) ==
LOC: M ED 15:42
DX: S80.862A Insect bite (nonvenomous), left lower leg, initial encounter (principal); W57.XXXA Bitten or stung by nonvenomous insect and other nonvenomous arthropods, initial encounter; Y92.89 Other specified places as the place of occurrence of the external cause; Y93.89 Activity, other specified; Y99.8 Other external cause status; F17.200 Nicotine dependence, unspecified, uncomplicated; Z79.899 Other long term (current) drug therapy

== ENCOUNTER → 2016-09-10 | Outpatient (CLI) | payer OTHER ==
[~2016-09-10] MED LIST changes: +BENA25CA4 PO; -CARA1TAB2 PO; +CARA1TAB6 PO; +GABA800T PO; +ISOVUE-M 300 61% 15ML VIAL (Q9967) As Ordered ONE; +KEFL500C17 PO; +KEPP1TAB PO; -KEPP500T6 PO; +LATU1TAB PO; -LEVA750T PO; +LEVA750T7 PO; +LIDOCAINE 1% SDV INJ 30 ML VIAL As Ordered ONE; +METH1TAB40 PO; +PRAZ5CAP PO; +TOPI200T7 PO; +diazePAM 5 MG TAB As Ordered ONE; +methylPREDNISolone SUSP 40 MG/ML (DEPO-medrol) VIAL (J1030) As Ordered ONE
--- NOTE | 2016-09-10 16:38 | REP ---
Partial cervical spine series: Single view. History: Cervical epidural steroid injection. Pain. 6 seconds of fluoroscopy time is reported. Findings: A single fluoroscopically obtained last image hold spot radiograph of the cervical thoracic junction documents needle position and contrast injection associated with epidural injection procedure. Signed by Bolivar Salas MD 09/10/2016 05:16 P
--- NOTE | 2016-09-20 23:48 | ECWPNPC ---
PATIENT NAME: HANANE RAPP : 1975 GENDER: FEMALE VISIT DATE: 09/10/2016 DISCHARGE DATE: 09/10/16 1538 VISIT LOCKED DATE TIME: PHYSICIAN: MARY LOU ISLAS RESOURCE: MARY LOU ISLAS REASON FOR APPOINTMENT 1. EMILIA APPROVED HISTORY OF PRESENT ILLNESS HISTORY OF PRESENT ILLNESS: PAIN THE PATIENT DESCRIBES THE PAIN... FALL RISK SCREENING: SCREENING :NO FALLS IN THE PAST YEAR CURRENT MEDICATIONS TAKING SUBOXONE 8-2 MG FILM SUBLINGUAL BID, NOTES: 09-10-16599 TAKING LAMOTRIGINE 200 MG TABLET 400MG IN AM/ 200 AT NIGHT ORAL , NOTES: 09-10-16599 TAKING IBUPROFEN 600 MG TABLET ORAL EVERY 6 HRS NEEDED, NOTES: 09-10-16599 TAKING SUCRALFATE 1 GM TABLET ORAL FOUR TIMES DAILY NEEDED, NOTES: NONE RECENT TAKING GABAPENTIN 800 MG TABLET ORAL TID, NOTES: 09-10-16599 TAKING PRAZOSIN HCL 1 MG CAPSULE 5MG AND 1MG CAP FOR TOTAL OF 6MG DOSE ORAL BEDTIME, NOTES: 09-09-162199 TAKING VITAMIN D (ERGOCALCIFEROL) 94822 UNIT CAPSULE ORAL WEEKLY, NOTES: 09-06-16 TAKING OMEPRAZOLE 40 MG CAPSULE DELAYED RELEASE ORAL ONCE DAILY PRN, NOTES: NONE RECENT TAKING TOPAMAX 200 MG TABLET 1 TABLET ORALLY IN A.M. & AT BEDTIME, NOTES: 09-10-16599 TAKING METHOCARBAMOL 500 MG TABLET 1 TAB ORALLY EVERY 8 HRS, NOTES: 09-10-16599 TAKING LYRICA 200 MG CAPSULE 1 CAPSULE ORALLY THREE TIMES DAILY MDD=3, NOTES: 09-10-16599 TAKING SOMA 350 MG TABLET 1 TABLET NEEDED ORALLY DAILY AT HS MDD=1, NOTES: 09-09-162199 NOT-TAKING VENTOLIN HFA 108 (90 BASE) MCG/ACT AEROSOL SOLUTION INHALATION DIRECTED NOT-TAKING REXULTI 1 MG TABLET 1 TABLET ORALLY ONCE A DAY MEDICATION LIST REVIEWED AND RECONCILED WITH THE PATIENT PAST MEDICAL HISTORY RIGHT KNEE WORSENING ARTHRITIS ANXIETY / DEPRESSION / PTSD/ SUICIDE ATTEMPT AUGUST 2013 OPIATE ABUSE PSORIASIS FIBRAMYALGIA HARD OF HEARING ALLERGIES BEE STINGS: ANAPHYLAXIS: ALLERGY REVIEW OF SYSTEMS REVIEWED BY: PROVIDER: . CONSTITUTIONAL: ANY CHANGE IN YOUR MEDICAL CONDITION? NO . CHILLS NO . FEVER NO . INFECTION: DO YOU HAVE NEW INFECTIONS? NO . DO YOU HAVE HISTORY OF MRSA? NO . MUSCULOSKELETAL: ANY NEW PATTERNS OF PAIN OR NUMBNESS? YES, NUMBNESS IN FINGERS IS GETTING WORSE, AND MORE PAIN DOWN BOTH ARMS. . GASTROENTEROLOGY: ANY NEW CHANGE IN BOWEL CONTROL? NO . GENITOURINARY: ANY NEW CHANGE IN BLADDER CONTROL? NO . IS THERE A CHANCE YOU COULD BE ? NO . HEMATOLOGY/LYMPH: DO YOU TAKE ANY BLOOD THINNERS? (FOR EXAMPLE- COUMADIN, PLAVIX, AGGRENOX, PLATEL, PRADAXA, OR XARELTO) NO . WHEN WAS YOUR LAST DOSE? DATE: TIME: . NEUROLOGY: HAVE YOU FALLEN IN THE PAST 6 MONTHS? NO . ANY NEW EXTREMITY NUMBNESS OR WEAKNESS? NO . CARDIOLOGY: DO YOU HAVE A PACEMAKER OR DEFIBRILLATOR? NO . RESPIRATORY: HAVE YOU BEEN SICK IN THE PAST WEEK? NO . FEVER NO . FLU LIKE SYMPTOMS? NO . COUGH NO . INTEGUMENTARY: DO YOU HAVE ANY RASHES OR OPEN SORES? NO . ALLERGIC/IMMUNO: ARE YOU ALLERGIC TO SHELLFISH OR IV DYE? NO . ANY NEW ALLERGIES? NO . PSYCHIATRIC: DO YOU HAVE THOUGHTS OF HURTING YOURSELF OR SOMEONE ELSE? NO . ARE YOU ABUSED, NEGLECTED, OR IN AN UNSAFE ENVIRONMENT? NO . ENDOCRINOLOGY: ARE YOU DIABETIC? NO . OTHER: DO YOU NEED ANY PRESCRIPTIONS? NO . IF YES, PLEASE LIST: ____ . ANY NEW PROBLEMS WITH YOUR MEDICATIONS? NO . WHEN DID YOU LAST EAT? 09-09-16 2300 . WHEN DID YOU LAST DRINK? 09-10-16 0600 . WHAT DID YOU LAST DRINK? WATER . NAME OF PERSON DRIVING YOU HOME? YELLOW CAB . DO YOU HAVE ANY OTHER QUESTIONS OR CONCERNS YES, VARGAS IS GOING TO REPEAT THE MRI FOR HER SURGICAL CONSULT. . VITAL SIGNS WT 139.2 LBS, HT 61", BMI 26.30 INDEX, BP 103/65 MM HG, HR 59 /MIN, RR 16 /MIN, TEMP 98.8 F, OXYGEN SAT % 100%, NA INITIALS SC11:59. ASSESSMENTS CERVICAL DISC DISORDER WITH RADICULOPATHY, CERVICOTHORACIC REGION - M50.13 (PRIMARY) PROCEDURES PN CERVICAL EPIDURAL PRE PROCEDURE DIAGNOSIS CERVICAL DISC DISORDER WITH RADICULOPATHY POST PROCEDURE DIAGNOSIS CERVICAL DISC DISORDER WITH RADICULOPATHY PROCEDURE CERVICAL EPIDURAL STEROID INJECTION UNDER FLUOROSCOPIC GUIDANCE SURGEON DR. MARY LOU ISLAS PRESS HAND SUPERVISOR NONE ANESTHESIA LOCAL PRE PROCEDURE NOTE THE PATIENT HAS A HISTORY OF CHRONIC CERVICAL PAIN. I EVALUATE THE PATIENT AND REVIEWED THE CHART. I WENT OVER THE RISKS, ALTERNATIVES, AND BENEFITS ASSOCIATED WITH THIS PROCEDURE. THE PATIENT WOULD LIKE TO PROCEED AND GIVE CONSENT TO PERFORMED THE PROCEDURE. THE PATIENT DENIES UNEXPLAINABLE WEIGHT LOSS, FEVER, CHILLS, OR NEW CHANGES IN URINARY OR BOWEL CONTROL DESCRIPTION OF PROCEDURE THE PATIENT WAS BROUGHT TO THE PROCEDURE ROOM AND PLACED IN THE PRONE POSITION. THE CERVICOTHORACIC AREA WAS CLEANED WITH BETADINE SOLUTION AND DRAPED ASEPTICALLY. THE PROCEDURE WAS DONE UNDER STERILE CONDITIONS. I CHECKED LATERALITY AND THE LEVEL WHERE THE PROCEDURE WAS GOING TO BE PERFORMED WITH THE PATIENT AND THE SUPPORTING STAFF AT THE MOMENT OF THE TIME OUT IN THE PROCEDURE ROOM. UNDER FLUOROSCOPIC GUIDANCE, THE TARGET WAS SELECTED AT THE INTERLAMINAR LEVEL OF C7-T1. LIDOCAINE WAS USED TO NUMB THE SKIN AND THE SUBCUTANEOUS TISSUE BELOW IT. EPIDURAL TUOHY NEEDLE 17-GAUGE WAS ADVANCED UNDER FLUOROSCOPIC GUIDANCE AND FOLLOWING PATIENT FEEDBACK UNTIL THE EPIDURAL SPACE WAS REACHED 10 CM DEEP INTO THE SKIN BY THE LOSS OF RESISTANCE TECHNIQUE. ISOVUE M DYE 30%, 0.25 ML, WAS INJECTED SHOWING ADEQUATE SPREAD OF THE DYE. THEN, A SOLUTION OF 3 ML OF NORMAL SALINE WITH DEPO-MEDROL 60 MG WAS INJECTED SLOWLY FOLLOWING PATIENT FEEDBACK. THERE WAS NO EVIDENCE OF BLOOD, PARESTHESIA OR CEREBROSPINAL FLUID DURING THE PROCEDURE. THE PATIENT WAS SENT TO THE RECOVERY ROOM. THE PATIENT WAS MOVING THE EXTREMITIES AND DOING WELL. THERE WAS NO COMPLICATION DURING THE PROCEDURE. FLUOROSCOPY TIME WAS 6 SECONDS POST PROCEDURE NOTE THE PATIENT WILL BE SEEN IN A FOLLOW UP IN THE NEXT FEW WEEKS. INSTRUCTIONS WERE GIVEN, QUESTIONS WERE ANSWERED, AND THE PATIENT EXPRESSED UNDERSTANDING AND AGREES WITH THE PLAN. I, BRITTA VENTURA, DOCUMENTED THE ABOVE INFORMATION ACTING A SCRIBE FOR DR. ISLAS. I HAVE REVIEWED THE ABOVE DOCUMENT, WRITTEN BY BRITTA VARGAS AND I VERIFY THAT IT IS [facility] FLUORO GUIDE SPINE INJECTION (PAIN)[id number] PROCEDURE CODES 44725 CERVICAL/THORACIC W/ IMAGING 6045F RADXPS IN END [id number] PXD DISPOSITION & COMMUNICATION FOLLOW UP 3 WEEKS ELECTRONICALLY SIGNED BY MARY LOU ISLAS MD ON 09/20/2016 AT 09:13 PM EDT DISCLAIMER : THIS IS A VISIT SUMMARY EXTRACTED FROM THE [employer] CHART. IT IS NOT A COPY OF THE [employer] PROGRESS NOTE. MTDD
== END ==
LOC: M PAIN 11:40
PROVIDERS: ATTEND Anesthesiology
DX: M50.13 Cervical disc disorder with radiculopathy, cervicothoracic region (principal); G89.29 Other chronic pain; Z79.899 Other long term (current) drug therapy; Z91.030 Bee allergy status

== ENCOUNTER → 2016-09-25 | Outpatient (CLI) | payer OTHER ==
[~2016-09-25] MED LIST changes: -ISOVUE-M 300 61% 15ML VIAL (Q9967) As Ordered ONE; -LIDOCAINE 1% SDV INJ 30 ML VIAL As Ordered ONE; -diazePAM 5 MG TAB As Ordered ONE; -methylPREDNISolone SUSP 40 MG/ML (DEPO-medrol) VIAL (J1030) As Ordered ONE
--- NOTE | 2016-10-23 01:31 | ECWPNPC ---
PATIENT NAME: HANANE RAPP : 1975 GENDER: FEMALE VISIT DATE: 09/25/2016 DISCHARGE DATE: 09/25/16 1556 VISIT LOCKED DATE TIME: PHYSICIAN: GUME CANO RESOURCE: GUME CANO REASON FOR APPOINTMENT 1. POST CE HISTORY OF PRESENT ILLNESS HISTORY OF PRESENT ILLNESS: PAIN THE PATIENT DESCRIBES THE PAIN... FALL RISK SCREENING: SCREENING :NO FALLS IN THE PAST YEAR TODAY'S VISIT: NOTES: S/P CESB ON . HAD FALL LAST WEEK WHICH ABRASIONS TO RIGHT LEG. SAW [facility] ABOUT NECK AND THEY HAVE OFFERED SURGERY TO BOTH THE NECK AND THE KNEES - TOTAL KNEE REPLACEMENT. EPIDURAL HAS BEEN HELPFUL - IMPROVED BY 60% FOR A FEW WEEKS. . CURRENT MEDICATIONS TAKING SUBOXONE 8-2 MG FILM SUBLINGUAL BID TAKING LAMOTRIGINE 200 MG TABLET 400MG IN AM/ 200 AT NIGHT ORAL TAKING IBUPROFEN 600 MG TABLET ORAL EVERY 6 HRS NEEDED TAKING SUCRALFATE 1 GM TABLET ORAL FOUR TIMES DAILY NEEDED TAKING GABAPENTIN 800 MG TABLET ORAL TID TAKING PRAZOSIN HCL 1 MG CAPSULE 5MG AND 1MG CAP FOR TOTAL OF 6MG DOSE ORAL BEDTIME TAKING VITAMIN D (ERGOCALCIFEROL) 66122 UNIT CAPSULE ORAL WEEKLY TAKING OMEPRAZOLE 40 MG CAPSULE DELAYED RELEASE ORAL ONCE DAILY PRN TAKING TOPAMAX 200 MG TABLET 1 TABLET ORALLY IN A.M. & AT BEDTIME TAKING LYRICA 200 MG CAPSULE 1 CAPSULE ORALLY THREE TIMES DAILY MDD=3 TAKING SOMA 350 MG TABLET 1 TABLET NEEDED ORALLY DAILY AT HS MDD=1 TAKING METHOCARBAMOL 500 MG TABLET 1 TAB ORALLY EVERY 8 HRS NOT-TAKING VENTOLIN HFA 108 (90 BASE) MCG/ACT AEROSOL SOLUTION INHALATION DIRECTED NOT-TAKING REXULTI 1 MG TABLET 1 TABLET ORALLY ONCE A DAY MEDICATION LIST REVIEWED AND RECONCILED WITH THE PATIENT PAST MEDICAL HISTORY RIGHT KNEE WORSENING ARTHRITIS ANXIETY / DEPRESSION / PTSD/ SUICIDE ATTEMPT AUGUST 2013 OPIATE ABUSE PSORIASIS FIBRAMYALGIA HARD OF HEARING ALLERGIES BEE STINGS: ANAPHYLAXIS: ALLERGY REVIEW OF SYSTEMS REVIEWED BY: PROVIDER: . CONSTITUTIONAL: ANY CHANGE IN YOUR MEDICAL CONDITION? NO . CHILLS NO . FEVER NO . INFECTION: DO YOU HAVE NEW INFECTIONS? NO . DO YOU HAVE HISTORY OF MRSA? NO . MUSCULOSKELETAL: ANY NEW PATTERNS OF PAIN OR NUMBNESS? NO . GASTROENTEROLOGY: ANY NEW CHANGE IN BOWEL CONTROL? NO . GENITOURINARY: ANY NEW CHANGE IN BLADDER CONTROL? NO . IS THERE A CHANCE YOU COULD BE ? NO . HEMATOLOGY/LYMPH: DO YOU TAKE ANY BLOOD THINNERS? (FOR EXAMPLE- COUMADIN, PLAVIX, AGGRENOX, PLATEL, PRADAXA, OR XARELTO) NO . WHEN WAS YOUR LAST DOSE? DATE: TIME: . NEUROLOGY: HAVE YOU FALLEN IN THE PAST 6 MONTHS? YES, THE OTHER DAY FELL AND BRUISED HER RIGHT ANTERIOR LEG . ANY NEW EXTREMITY NUMBNESS OR WEAKNESS? NO . CARDIOLOGY: DO YOU HAVE A PACEMAKER OR DEFIBRILLATOR? NO . RESPIRATORY: HAVE YOU BEEN SICK IN THE PAST WEEK? NO . FEVER NO . FLU LIKE SYMPTOMS? NO . COUGH NO . INTEGUMENTARY: DO YOU HAVE ANY RASHES OR OPEN SORES? NO . ALLERGIC/IMMUNO: ARE YOU ALLERGIC TO SHELLFISH OR IV DYE? NO . ANY NEW ALLERGIES? NO . PSYCHIATRIC: DO YOU HAVE THOUGHTS OF HURTING YOURSELF OR SOMEONE ELSE? NO . ARE YOU ABUSED, NEGLECTED, OR IN AN UNSAFE ENVIRONMENT? NO . ENDOCRINOLOGY: ARE YOU DIABETIC? NO . OTHER: DO YOU NEED ANY PRESCRIPTIONS? YES . IF YES, PLEASE LIST: SOMA ON THE 3RD OR 4TH . ANY NEW PROBLEMS WITH YOUR MEDICATIONS? NO . WHEN DID YOU LAST EAT? ____ . WHEN DID YOU LAST DRINK? ____ . WHAT DID YOU LAST DRINK? ____ . NAME OF PERSON DRIVING YOU HOME? ____ . DO YOU HAVE ANY OTHER QUESTIONS OR CONCERNS YES, WENT TO [facility] AND SURGERY WAS DISCUSSED . VITAL SIGNS WT 141 LBS, HT 61", BMI 26.64 INDEX, BP 98/68 MM HG, HR 74 /MIN, RR 18 /MIN, TEMP 98.3 F, OXYGEN SAT % 99, REVIEWED BY: NL. EXAMINATION GENERAL EXAMINATION: GENERAL APPEARANCE:USING ARTIFICIAL TANNING SOLUTION - . PSYCHALERT , ORIENTED X 3 . LUNGS:CLEAR TO AUSCULTATION BILATERALLY. HEART:HEART RATE REGULAR. MUSCULOSKELETAL:MUSCLE STRENGTH TESTING 5/5 BILATERAL UPPER AND LOWER EXTREMITIES. , TRIGGER POINTS AND TIGHT FIBROUS BANDS IDENTIFIED OVER CERVICAL PARASPINOUS MUSCLES AND ACROSS THE TRAPEZIUS BILATERALLY. NO OCCIPITAL NOTCH TENDERNESS ELICITED TODAY. NEUROLOGIC EXAM:DTR'S TRACE TO ABSENT IN YEISON UPPER AND LOEER EXTREMITIES. NO SENS DEF TO LIGHT TOUCH. ASSESSMENTS CERVICAL DISC DISORDER WITH RADICULOPATHY, CERVICOTHORACIC REGION - M50.13 (PRIMARY) MYALGIA - M79.1 TREATMENT CERVICAL DISC DISORDER WITH RADICULOPATHY, CERVICOTHORACIC REGION REFILL METHOCARBAMOL TABLET, 750 MG, 1 TAB, ORALLY, EVERY 8 HRS, 30 DAY(S), 90 TABLET, REFILLS 2 REFILL SOMA TABLET, 350 MG, 1 TABLET NEEDED, ORALLY, DAILY AT HS MDD=1, 30 DAY(S), 30, REFILLS 0 TRIGGER POINT 3 + GUME CAMILO 09/25/2016 3:45:31 PM > NECK/SHOULDERS NOTES: DO SHOULDER ROLLS.,PATIENT EDUCATION WAS PRINTED. PREVENTIVE MEDICINE DISCUSSED TPI AND PREPROCEDURE CARE AND PT VERBALIZED UNDERSTANDING. DISPOSITION & COMMUNICATION FOLLOW UP AFTER INJECTION (REASON: [place] - NEED LAST OV NOTES FROM [facility] ABOUT POSSIBLE NECK SURGERY NECK PAIN) ELECTRONICALLY SIGNED BY SUMI KIM ON 10/22/2016 AT 07:22 PM EDT DISCLAIMER : THIS IS A VISIT SUMMARY EXTRACTED FROM THE [employer] CHART. IT IS NOT A COPY OF THE [employer] PROGRESS NOTE. SUNNY
== END ==
LOC: M PAIN 15:00
PROVIDERS: ATTEND Nurse Practitioner Family
DX: M50.13 Cervical disc disorder with radiculopathy, cervicothoracic region (principal); M79.1 Myalgia; Z79.899 Other long term (current) drug therapy; Z91.030 Bee allergy status

== ENCOUNTER → 2016-10-14 | Outpatient (CLI) | payer OTHER | LOC: M OUTALCOH 11:53 | PROVIDERS: ATTEND Psychiatry & Neurology Psychiatry | DX: Z03.89 Encounter for observation for other suspected diseases and conditions ruled out (principal) ==

== ENCOUNTER 2016-11-04 16:00 | Outpatient (RCR) | payer OTHER | END 2016-11-05 | LOC: M OUTALCOH 16:00 | PROVIDERS: ATTEND Psychiatry & Neurology Psychiatry | DX: F11.20 Opioid dependence, uncomplicated (principal); F17.200 Nicotine dependence, unspecified, uncomplicated ==

== ENCOUNTER 2016-12-02 16:00 | Outpatient (RCR) | payer OTHER | END 2016-12-05 | LOC: M OUTALCOH 16:00 | PROVIDERS: ATTEND Psychiatry & Neurology Psychiatry | DX: F11.20 Opioid dependence, uncomplicated (principal); F17.200 Nicotine dependence, unspecified, uncomplicated ==

== ENCOUNTER → 2016-12-08 | Outpatient (CLI) | payer OTHER ==
[~2016-12-08] MED LIST changes: +BUPIVACAINE HCL 0.25% 10 ML VIAL As Ordered ONE; +BUPIVACAINE HCL 0.25% 30 ML VIAL As Ordered ONE; +TRIAMCINOLONE ACETONIDE SUSP 40 MG/ML VIAL (J3301) As Ordered ONE; +diazePAM 5 MG TAB As Ordered ONE
--- NOTE | 2016-12-15 00:37 | ECWPNPC ---
PATIENT NAME: HANANE RAPP : 1975 GENDER: FEMALE VISIT DATE: 12/08/2016 DISCHARGE DATE: 12/08/16 1520 VISIT LOCKED DATE TIME: PHYSICIAN: MARY LOU ISLAS RESOURCE: MARY LOU ISLAS REASON FOR APPOINTMENT 1. NECK/SHOULDERS CURRENT MEDICATIONS TAKING SUBOXONE 8-2 MG FILM SUBLINGUAL BID, NOTES: 12/08 11AM TAKING LAMOTRIGINE 200 MG TABLET 400MG IN AM/ 200 AT NIGHT ORAL , NOTES: 12/08M TAKING IBUPROFEN 600 MG TABLET ORAL EVERY 6 HRS NEEDED, NOTES: 12/08 TAKING SUCRALFATE 1 GM TABLET ORAL FOUR TIMES DAILY NEEDED, NOTES: 12/08M TAKING GABAPENTIN 800 MG TABLET ORAL TID, NOTES: 12/08 TAKING PRAZOSIN HCL 1 MG CAPSULE 5MG AND 1MG CAP FOR TOTAL OF 6MG DOSE ORAL BEDTIME, NOTES: 12/07 11PM TAKING VITAMIN D (ERGOCALCIFEROL) 59993 UNIT CAPSULE ORAL WEEKLY, NOTES: 12/08M TAKING OMEPRAZOLE 40 MG CAPSULE DELAYED RELEASE ORAL ONCE DAILY PRN, NOTES: 12/08M TAKING TOPAMAX 200 MG TABLET 1 TABLET ORALLY IN A.M. & AT BEDTIME, NOTES: M TAKING METHOCARBAMOL 750 MG TABLET 1 TAB ORALLY EVERY 8 HRS, NOTES: 12/08M TAKING SOMA 350 MG TABLET 1 TABLET NEEDED ORALLY DAILY AT HS MDD=1, NOTES: 12/08 11PM TAKING LYRICA 200 MG CAPSULE 1 CAPSULE ORALLY THREE TIMES DAILY MDD=3, NOTES: 12/08M NOT-TAKING VENTOLIN HFA 108 (90 BASE) MCG/ACT AEROSOL SOLUTION INHALATION DIRECTED NOT-TAKING REXULTI 1 MG TABLET 1 TABLET ORALLY ONCE A DAY MEDICATION LIST REVIEWED AND RECONCILED WITH THE PATIENT PAST MEDICAL HISTORY RIGHT KNEE WORSENING ARTHRITIS ANXIETY / DEPRESSION / PTSD/ SUICIDE ATTEMPT AUGUST 2013 OPIATE ABUSE PSORIASIS FIBRAMYALGIA HARD OF HEARING ALLERGIES BEE STINGS: ANAPHYLAXIS: ALLERGY SOCIAL HISTORY GENERAL: TOBACCO USE ARE YOU A:CURRENT SMOKER HOW MANY CIGARETTES A DAY DO YOU SMOKE?21-30 HOW SOON AFTER YOU WAKE UP DO YOU SMOKE YOUR FIRST CIGARETTE?WITHIN 5 MIN HOW OFTEN DO YOU SMOKE CIGARETTES?EVERY DAY PATIENT COUNSELED ON THE DANGERS OF TOBACCO USE AND URGED TO QUIT:06/17/2016 ARE YOU INTERESTED IN QUITTING?THINKING ABOUT QUITTING PREVIOUS QUIT ATTEMPTS?YES, MORE THAN 6 MONTHS AGO. COUNSELED THE PATIENT ON SMOKING CESSATION, EDUCATION [id number]/05/2017 PAIN CLINIC PFS, CLERGY, PUBLIC HEALTH REFERRALS PFS REFERRAL NEEDED?NO CLERGY REFERRAL NEEDED?NO PUBLIC HEALTH REFERRAL NEEDED?NO WAS THE PROVIDER NOTIFIED OF ANY PERTINENT INFO?YES HAS THE PATIENT BEEN EDUCATED REGARDING HIS/HER PLAN OF CARE?YES PLEASE DOCUMENT ANY ADDTIONAL DETAILS. TRIGGER POINT INJECTIONS NECK AND LOW BACK HAS THE PATIENT BEEN EDUCATED REGARDING PAIN, THE RISK FOR PAIN, THE IMPORTANCE OF EFFECTIVE PAIN MANAGEMENT, AND THE PAIN ASSESSMENT PROCESS?YES PATIENT: ____. PAIN IS MORE IN THE NECK NOW AND NUMBNESS TO FINGERS ON BOTH HANDS, PAIN DOWN RIGHT SHOULDER. VITAL SIGNS WT 138.4 LBS, HT 61", BMI 26.15 INDEX, BP 121/83 MM HG, HR 61 /MIN, RR 16 /MIN, TEMP 98.2 F, OXYGEN SAT % 96%, SAFE IN ENV? (Y/N) Y, NA INITIALS [place] 13:57, REVIEWED BY: PHIL. ASSESSMENTS MYALGIA - M79.1 (PRIMARY) PROCEDURES PN TRIGGER POINT INJECTION WITH STEROIDS PRE PROCEDURE DIAGNOSIS 1. MYALGIA 2. PAIN AT BILATERAL SHOULDER AREA POST PROCEDURE DIAGNOSIS 1. MYALGIA 2. PAIN AT BILATERAL SHOULDER AREA PROCEDURE TRIGGER POINT INJECTION AT BILATERAL SHOULDER AREA SURGEON DR. MARY LOU ISLAS CRIMINAL LEGAL ASSISTANT NONE ANESTHESIA LOCAL PRE PROCEDURE NOTE THE PATIENT HAS A HISTORY OF CHRONIC PAIN AT THE RIGHT AND LEFT SHOULDER AREA. I EVALUATE THE PATIENT AND REVIEWED THE CHART. THERE IS EVIDENCE OF BANDS OF TISSUE WITH RESTRICTION OF MOVEMENT AND PRESENCE OF TRIGGER POINT AT THE AFFECTED AREA. I WENT OVER THE RISKS, ALTERNATIVES, AND BENEFITS ASSOCIATED WITH THIS PROCEDURE. THE PATIENT WOULD LIKE TO PROCEED AND GIVE CONSENT TO PERFORMED THE PROCEDURE. THE PATIENT DENIES UNEXPLAINABLE WEIGHT LOSS, FEVER, CHILLS, OR NEW CHANGES IN URINARY OR BOWEL CONTROL DESCRIPTION OF PROCEDURE THE PATIENT WAS BROUGHT TO THE PROCEDURE ROOM AND PLACED IN THE SITTING POSITION. THE AREA WAS CLEANED WITH ALCOHOL. THE PROCEDURE WAS DONE USING ASEPTIC STERILE TECHNIQUE. I CHECKED LATERALITY AND THE LEVEL WHERE THE PROCEDURE WAS GOING TO BE PERFORMED WITH THE PATIENT AND THE SUPPORTING STAFF AT THE MOMENT OF THE TIME OUT IN THE PROCEDURE ROOM. USING A 25-GAUGE NEEDLE, TRIGGER POINTS WERE INJECTED AT THE RIGHT AND LEFT SHOULDER AREA WITH A TOTAL OF 40 ML OF BUPIVACAINE 0.25% AND KENALOG 40 MG. THERE WAS NO EVIDENCE OF BLOOD, PARESTHESIA OR CEREBROSPINAL FLUID DURING THE PROCEDURE. THE PATIENT WAS SENT TO THE RECOVERY ROOM. THE PATIENT WAS MOVING THE EXTREMITIES AND DOING WELL. THERE WAS NO COMPLICATION DURING THE PROCEDURE POST PROCEDURE NOTE THE PATIENT WILL BE SEEN IN A FOLLOW UP IN THE NEXT FEW WEEKS. INSTRUCTIONS WERE GIVEN, QUESTIONS WERE ANSWERED, AND THE PATIENT EXPRESSED UNDERSTANDING AND AGREES WITH THE PLAN. I, BRITTA VENTURA, DOCUMENTED THE ABOVE INFORMATION ACTING A SCRIBE FOR DR. ISLAS. I HAVE REVIEWED THE ABOVE DOCUMENT, WRITTEN BY BRITTA VARGAS AND I VERIFY THAT IT IS ACCURATE PROCEDURE CODES 76528 INJ TRIGGER POINT / MUSCL DISPOSITION & COMMUNICATION FOLLOW UP 3 WEEKS ELECTRONICALLY SIGNED BY MARY LOU ISLAS MD ON 12/14/2016 AT 09:14 PM EDT DISCLAIMER : THIS IS A VISIT SUMMARY EXTRACTED FROM THE [employer] [facility] CHART. IT IS NOT A COPY OF THE [employer] PROGRESS NOTE. [email or web address]
== END ==
LOC: M PAIN 13:45
PROVIDERS: ATTEND Anesthesiology
DX: G89.29 Other chronic pain (principal); M79.1 Myalgia; F17.210 Nicotine dependence, cigarettes, uncomplicated; Z79.899 Other long term (current) drug therapy; Z91.030 Bee allergy status
CPT/HCPCS: 20552; J3301

== ENCOUNTER → 2017-01-01 | Outpatient (CLI) | payer OTHER ==
[~2017-01-01] MED LIST changes: -BUPIVACAINE HCL 0.25% 10 ML VIAL As Ordered ONE; -BUPIVACAINE HCL 0.25% 30 ML VIAL As Ordered ONE; -TRIAMCINOLONE ACETONIDE SUSP 40 MG/ML VIAL (J3301) As Ordered ONE; -diazePAM 5 MG TAB As Ordered ONE
--- NOTE | 2017-02-01 00:40 | ECWPNPC ---
PATIENT NAME: HANANE RAPP : 1975 GENDER: FEMALE VISIT DATE: 01/01/2017 DISCHARGE DATE: 01/01/17 1503 VISIT LOCKED DATE TIME: PHYSICIAN: GUME CANO RESOURCE: GUME CANO REASON FOR APPOINTMENT 1. POST TPI HISTORY OF PRESENT ILLNESS HISTORY OF PRESENT ILLNESS: PAIN THE PATIENT DESCRIBES THE PAIN... FALL RISK SCREENING: SCREENING :NO FALLS IN THE PAST YEAR TODAY'S VISIT: NOTES: RATES PAIN LEVEL TODAY 10/15. IS S/P TPI COMPLETED ON 12/13/16 WITH STEROIDS TO THE NECK AND SHOULDERS. NOTES IMPROVEMENT IN PAIN BY 40-60% WITH IMPROVEMENT IN ROM AND UPPER EXTREMITIY STRENGTH. THE NECK IS THE WORST PAIN AREA AND IS HAVING TROUBLE WITH LIFTING, AND NUMBNESS AND TINGLIN INTO ARMS. . CURRENT MEDICATIONS TAKING SUBOXONE 8-2 MG FILM SUBLINGUAL BID TAKING LAMOTRIGINE 200 MG TABLET 400MG IN AM/ 200 AT NIGHT ORAL TAKING IBUPROFEN 600 MG TABLET ORAL EVERY 6 HRS NEEDED TAKING SUCRALFATE 1 GM TABLET ORAL FOUR TIMES DAILY NEEDED TAKING GABAPENTIN 800 MG TABLET ORAL TID TAKING PRAZOSIN HCL 1 MG CAPSULE 5MG AND 1MG CAP FOR TOTAL OF 6MG DOSE ORAL BEDTIME TAKING VITAMIN D (ERGOCALCIFEROL) 34519 UNIT CAPSULE ORAL WEEKLY TAKING OMEPRAZOLE 40 MG CAPSULE DELAYED RELEASE ORAL ONCE DAILY PRN TAKING TOPAMAX 200 MG TABLET 1 TABLET ORALLY IN A.M. & AT BEDTIME TAKING LYRICA 200 MG CAPSULE 1 CAPSULE ORALLY THREE TIMES DAILY MDD=3 TAKING SOMA 350 MG TABLET 1 TABLET NEEDED ORALLY DAILY AT HS MDD=1 TAKING METHOCARBAMOL 750 MG TABLET 1 TAB ORALLY EVERY 8 HRS UNKNOWN VENTOLIN HFA 108 (90 BASE) MCG/ACT AEROSOL SOLUTION INHALATION DIRECTED UNKNOWN REXULTI 1 MG TABLET 1 TABLET ORALLY ONCE A DAY MEDICATION LIST REVIEWED AND RECONCILED WITH THE PATIENT PAST MEDICAL HISTORY RIGHT KNEE WORSENING ARTHRITIS ANXIETY / DEPRESSION / PTSD/ SUICIDE ATTEMPT AUGUST 2013 OPIATE ABUSE PSORIASIS FIBRAMYALGIA HARD OF HEARING ALLERGIES BEE STINGS: ANAPHYLAXIS: ALLERGY SOCIAL HISTORY GENERAL: TOBACCO USE ARE YOU A:CURRENT SMOKER HOW MANY CIGARETTES A DAY DO YOU SMOKE?21-30 HOW SOON AFTER YOU WAKE UP DO YOU SMOKE YOUR FIRST CIGARETTE?WITHIN 5 MIN HOW OFTEN DO YOU SMOKE CIGARETTES?EVERY DAY PATIENT COUNSELED ON THE DANGERS OF TOBACCO USE AND URGED TO QUIT:06/17/2016 ARE YOU INTERESTED IN QUITTING?THINKING ABOUT QUITTING PREVIOUS QUIT ATTEMPTS?YES, MORE THAN 6 MONTHS AGO. COUNSELED THE PATIENT ON SMOKING CESSATION, EDUCATION OACHDDOL22/05/2017 PAIN CLINIC PFS, CLERGY, PUBLIC HEALTH REFERRALS PFS REFERRAL NEEDED?NO CLERGY REFERRAL NEEDED?NO PUBLIC HEALTH REFERRAL NEEDED?NO WAS THE PROVIDER NOTIFIED OF ANY PERTINENT INFO?YES HAS THE PATIENT BEEN EDUCATED REGARDING HIS/HER PLAN OF CARE?YES PLEASE DOCUMENT ANY ADDTIONAL DETAILS. TRIGGER POINT INJECTIONS NECK AND LOW BACK HAS THE PATIENT BEEN EDUCATED REGARDING PAIN, THE RISK FOR PAIN, THE IMPORTANCE OF EFFECTIVE PAIN MANAGEMENT, AND THE PAIN ASSESSMENT PROCESS?YES PATIENT: ____. PAIN IS MORE IN THE NECK NOW AND NUMBNESS TO FINGERS ON BOTH HANDS, PAIN DOWN RIGHT SHOULDER. REVIEW OF SYSTEMS REVIEWED BY: PROVIDER: GUME BUSBY . CONSTITUTIONAL: ANY CHANGE IN YOUR MEDICAL CONDITION? NO . CHILLS NO . FEVER NO . INFECTION: DO YOU HAVE NEW INFECTIONS? NO . DO YOU HAVE HISTORY OF MRSA? NO . MUSCULOSKELETAL: ANY NEW PATTERNS OF PAIN OR NUMBNESS? YES, PAIN IS SHOOTING DOWN BOTH ARMS FROM HER NECK INTO HER HANDS AND HANDS ARE NUMB AND TINGLY. . GASTROENTEROLOGY: ANY NEW CHANGE IN BOWEL CONTROL? NO . GENITOURINARY: ANY NEW CHANGE IN BLADDER CONTROL? NO . IS THERE A CHANCE YOU COULD BE ? NO . HEMATOLOGY/LYMPH: DO YOU TAKE ANY BLOOD THINNERS? (FOR EXAMPLE- COUMADIN, PLAVIX, AGGRENOX, PLATEL, PRADAXA, OR XARELTO) NO . WHEN WAS YOUR LAST DOSE? DATE: TIME: . NEUROLOGY: HAVE YOU FALLEN IN THE PAST 6 MONTHS? YES . ANY NEW EXTREMITY NUMBNESS OR WEAKNESS? NO . CARDIOLOGY: DO YOU HAVE A PACEMAKER OR DEFIBRILLATOR? NO . RESPIRATORY: HAVE YOU BEEN SICK IN THE PAST WEEK? NO . FEVER NO . FLU LIKE SYMPTOMS? NO . COUGH NO . INTEGUMENTARY: DO YOU HAVE ANY RASHES OR OPEN SORES? NO . ALLERGIC/IMMUNO: ARE YOU ALLERGIC TO SHELLFISH OR IV DYE? NO . ANY NEW ALLERGIES? NO . PSYCHIATRIC: DO YOU HAVE THOUGHTS OF HURTING YOURSELF OR SOMEONE ELSE? NO . ARE YOU ABUSED, NEGLECTED, OR IN AN UNSAFE ENVIRONMENT? NO . ENDOCRINOLOGY: ARE YOU DIABETIC? NO . OTHER: DO YOU NEED ANY PRESCRIPTIONS? YES, . IF YES, PLEASE LIST: SOMA DUE ON THE 5TH . ANY NEW PROBLEMS WITH YOUR MEDICATIONS? NO . WHEN DID YOU LAST EAT? ____ . WHEN DID YOU LAST DRINK? ____ . WHAT DID YOU LAST DRINK? ____ . NAME OF PERSON DRIVING YOU HOME? ____ . DO YOU HAVE ANY OTHER QUESTIONS OR CONCERNS NO . VITAL SIGNS WT 141.6 LBS, HT 61", BMI 26.75 INDEX, BP 107/69 MM HG, HR 65 /MIN, RR 16 /MIN, TEMP 97.5 F, OXYGEN SAT % 96%, NA INITIALS TL 1428, REVIEWED BY: CM. EXAMINATION GENERAL EXAMINATION: GENERAL APPEARANCE:USING ARTIFICIAL TANNING SOLUTION - . PSYCHALERT , ORIENTED X 3 , ANXIOUS. LUNGS:CLEAR TO AUSCULTATION BILATERALLY. HEART:HEART RATE REGULAR. MUSCULOSKELETAL:MUSCLE STRENGTH TESTING 5/5 BILATERAL UPPER AND LOWER EXTREMITIES. , TRIGGER POINTS AND TIGHT FIBROUS BANDS IDENTIFIED OVER CERVICAL PARASPINOUS MUSCLES AND ACROSS THE TRAPEZIUS BILATERALLY. NO OCCIPITAL NOTCH TENDERNESS ELICITED TODAY. ASSESSMENTS CERVICAL DISC DISORDER WITH RADICULOPATHY, CERVICOTHORACIC REGION - M50.13 (PRIMARY) MYALGIA - M79.1 TREATMENT CERVICAL DISC DISORDER WITH RADICULOPATHY, CERVICOTHORACIC REGION REFILL SOMA TABLET, 350 MG, 1 TABLET NEEDED, ORALLY, DAILY AT HS MDD=1, 30 DAY(S), 30, REFILLS 3 CERVICAL EPIDURAL RIGHT NOTES: CERVICAL EPIDURAL INJECTION MATERIAL WAS PRINTED. PROCEDURE CODES FA211 ESTABILISHED PATIENT [facility] CHARGE DISPOSITION & COMMUNICATION FOLLOW UP AFTER INJECTION (REASON: CHECK AUTH FOR CERVICAL EPIDURAL NECK PAIN) ELECTRONICALLY SIGNED BY SUMI KIM ON 01/31/2017 AT 09:18 PM EST DISCLAIMER : THIS IS A VISIT SUMMARY EXTRACTED FROM THE [employer] CHART. IT IS NOT A COPY OF THE [employer] PROGRESS NOTE. SUNNY
== END ==
LOC: M PAIN 14:00
PROVIDERS: ATTEND Nurse Practitioner Family
DX: M50.13 Cervical disc disorder with radiculopathy, cervicothoracic region (principal); M79.1 Myalgia; Z79.899 Other long term (current) drug therapy; F17.210 Nicotine dependence, cigarettes, uncomplicated; Z91.030 Bee allergy status

== ENCOUNTER → 2017-01-13 | Outpatient (CLI) | payer OTHER ==
[~2017-01-13] MED LIST changes: +ISOVUE-M 300 61% 15ML VIAL (Q9967) As Ordered ONE; +LIDOCAINE 1% SDV INJ 30 ML VIAL As Ordered ONE; +diazePAM 5 MG TAB As Ordered ONE; +methylPREDNISolone SUSP 40 MG/ML (DEPO-medrol) VIAL (J1030) As Ordered ONE
--- NOTE | 2017-01-14 09:13 | REP ---
Partial lumbar spine series: Two views . History: Injection procedure for pain. 14 seconds of fluoroscopy time is reported. Findings: A sequence of two fluoroscopically obtained last image hold procedural spot radiographs of the lumbar spine document needle position and contrast injection associated with injection procedure. Signed by Bolivar Salas MD 01/14/2017 09:05 A
--- NOTE | 2017-01-18 23:57 | ECWPNPC ---
PATIENT NAME: HANANE RAPP : 1975 GENDER: FEMALE VISIT DATE: 01/13/2017 DISCHARGE DATE: 01/13/17 1601 VISIT LOCKED DATE TIME: PHYSICIAN: MARY LOU ISLAS RESOURCE: MARY LOU ISLAS REASON FOR APPOINTMENT 1. CERVICAL EPIDURAL HISTORY OF PRESENT ILLNESS HISTORY OF PRESENT ILLNESS: PAIN THE PATIENT DESCRIBES THE PAIN... FALL RISK SCREENING: SCREENING :NO FALLS IN THE PAST YEAR CURRENT MEDICATIONS TAKING SUBOXONE 8-2 MG FILM SUBLINGUAL BID, NOTES: 01/13/17769 TAKING LAMOTRIGINE 200 MG TABLET 400MG IN AM/ 200 AT NIGHT ORAL , NOTES: 01/13/17699 TAKING IBUPROFEN 600 MG TABLET ORAL EVERY 6 HRS NEEDED, NOTES: 01/13/17699 TAKING SUCRALFATE 1 GM TABLET ORAL FOUR TIMES DAILY NEEDED, NOTES: NONE RECENTLY TAKING GABAPENTIN 800 MG TABLET ORAL TID, NOTES: 01/13/17699 TAKING PRAZOSIN HCL 1 MG CAPSULE 5MG AND 1MG CAP FOR TOTAL OF 6MG DOSE ORAL BEDTIME, NOTES: 01/12/172199 TAKING VITAMIN D (ERGOCALCIFEROL) 11497 UNIT CAPSULE ORAL WEEKLY, NOTES: 01/10/17 TAKING OMEPRAZOLE 40 MG CAPSULE DELAYED RELEASE ORAL ONCE DAILY PRN, NOTES: MORE THAN 1 DAY AGO TAKING TOPAMAX 200 MG TABLET 1 TABLET ORALLY IN A.M. & AT BEDTIME, NOTES: 01/13/17699 TAKING LYRICA 200 MG CAPSULE 1 CAPSULE ORALLY THREE TIMES DAILY MDD=3, NOTES: 01/12/17699 TAKING METHOCARBAMOL 750 MG TABLET 1 TAB ORALLY EVERY 8 HRS, NOTES: 01/13/17699 TAKING SOMA 350 MG TABLET 1 TABLET NEEDED ORALLY DAILY AT HS MDD=1, NOTES: 01/12/172199 NOT-TAKING VENTOLIN HFA 108 (90 BASE) MCG/ACT AEROSOL SOLUTION INHALATION DIRECTED NOT-TAKING REXULTI 1 MG TABLET 1 TABLET ORALLY ONCE A DAY MEDICATION LIST REVIEWED AND RECONCILED WITH THE PATIENT PAST MEDICAL HISTORY RIGHT KNEE WORSENING ARTHRITIS ANXIETY / DEPRESSION / PTSD/ SUICIDE ATTEMPT AUGUST 2013 OPIATE ABUSE PSORIASIS FIBRAMYALGIA HARD OF HEARING ALLERGIES BEE STINGS: ANAPHYLAXIS: ALLERGY SURGICAL HISTORY LEFT FOOT BUNIONECTOMY GASTRIC BYPASS 2012 BRAIN SURGURY AT AGE 4 TRACHEOSTOMY APR 2010 SOCIAL HISTORY GENERAL: TOBACCO USE ARE YOU A:FORMER SMOKER HOW LONG HAS IT BEEN SINCE YOU LAST SMOKED?3-6 MONTHS [id number] PFS, CLERGY, PUBLIC HEALTH REFERRALS PFS REFERRAL NEEDED?NO CLERGY REFERRAL NEEDED?NO PUBLIC HEALTH REFERRAL NEEDED?NO WAS THE PROVIDER NOTIFIED OF ANY PERTINENT INFO?YES HAS THE PATIENT BEEN EDUCATED REGARDING HIS/HER PLAN OF CARE?YES PLEASE DOCUMENT ANY ADDTIONAL DETAILS. TRIGGER POINT INJECTIONS NECK AND LOW BACK HAS THE PATIENT BEEN EDUCATED REGARDING PAIN, THE RISK FOR PAIN, THE IMPORTANCE OF EFFECTIVE PAIN MANAGEMENT, AND THE PAIN ASSESSMENT PROCESS?YES PATIENT: ____. [facility] DIRECTIVES HEALTH CARE PROXY?NO WOULD YOU LIKE MORE INFORMATION?NO DO YOU HAVE A DNR?NO WOULD YOU LIKE MORE INFORMATION?NO LIVING WILL?NO WOULD YOU LIKE MORE INFORMATION?NO POWER OF DIVER PUMPER?NO WOULD YOU LIKE MORE INFORMATION?NO PAIN IS MORE IN THE NECK NOW AND NUMBNESS TO FINGERS ON BOTH HANDS, PAIN DOWN RIGHT SHOULDER. HOSPITALIZATION/MAJOR DIAGNOSTIC PROCEDURE SEE ABOVE REVIEW OF SYSTEMS REVIEWED BY: PROVIDER: . CONSTITUTIONAL: ANY CHANGE IN YOUR MEDICAL CONDITION? NO . CHILLS NO . FEVER NO . INFECTION: DO YOU HAVE NEW INFECTIONS? NO . DO YOU HAVE HISTORY OF MRSA? NO . MUSCULOSKELETAL: ANY NEW PATTERNS OF PAIN OR NUMBNESS? NO . GASTROENTEROLOGY: ANY NEW CHANGE IN BOWEL CONTROL? NO . GENITOURINARY: ANY NEW CHANGE IN BLADDER CONTROL? NO . IS THERE A CHANCE YOU COULD BE ? NO . HEMATOLOGY/LYMPH: DO YOU TAKE ANY BLOOD THINNERS? (FOR EXAMPLE- COUMADIN, PLAVIX, AGGRENOX, PLATEL, PRADAXA, OR XARELTO) NO . WHEN WAS YOUR LAST DOSE? DATE: TIME: . NEUROLOGY: HAVE YOU FALLEN IN THE PAST 6 MONTHS? NO . ANY NEW EXTREMITY NUMBNESS OR WEAKNESS? NO . CARDIOLOGY: DO YOU HAVE A PACEMAKER OR DEFIBRILLATOR? NO . RESPIRATORY: HAVE YOU BEEN SICK IN THE PAST WEEK? NO . FEVER NO . FLU LIKE SYMPTOMS? NO . COUGH NO . INTEGUMENTARY: DO YOU HAVE ANY RASHES OR OPEN SORES? NO . ALLERGIC/IMMUNO: ARE YOU ALLERGIC TO SHELLFISH OR IV DYE? NO . ANY NEW ALLERGIES? NO . PSYCHIATRIC: DO YOU HAVE THOUGHTS OF HURTING YOURSELF OR SOMEONE ELSE? NO . ARE YOU ABUSED, NEGLECTED, OR IN AN UNSAFE ENVIRONMENT? NO . ENDOCRINOLOGY: ARE YOU DIABETIC? NO . OTHER: DO YOU NEED ANY PRESCRIPTIONS? NO . IF YES, PLEASE LIST: ____ . ANY NEW PROBLEMS WITH YOUR MEDICATIONS? NO . WHEN DID YOU LAST EAT? 2300 . WHEN DID YOU LAST DRINK? 0600 . WHAT DID YOU LAST DRINK? WATER . NAME OF PERSON DRIVING YOU HOME? YELLOW CAB . DO YOU HAVE ANY OTHER QUESTIONS OR CONCERNS NO . VITAL SIGNS WT 140.0 LBS, HT 61", BMI 26.45 INDEX, BP 115/75 MM HG, HR 61 /MIN, RR 16 /MIN, TEMP 97.6 F, OXYGEN SAT % 100%, NA INITIALS TL 1410, REVIEWED BY: LS. ASSESSMENTS CERVICAL DISC DISORDER WITH RADICULOPATHY OF CERVICOTHORACIC REGION - M50.13 (PRIMARY) PROCEDURES PN CERVICAL EPIDURAL PRE PROCEDURE DIAGNOSIS CERVICAL DISC DISORDER WITH RADICULOPATHY POST PROCEDURE DIAGNOSIS CERVICAL DISC DISORDER WITH RADICULOPATHY PROCEDURE CERVICAL EPIDURAL STEROID INJECTION UNDER FLUOROSCOPIC GUIDANCE SURGEON DR. MARY LOU ISLAS RETAIL WIRELESS SALES CONSULTANT NONE ANESTHESIA LOCAL PRE PROCEDURE NOTE THE PATIENT HAS A HISTORY OF CHRONIC CERVICAL PAIN. I EVALUATE THE PATIENT AND REVIEWED THE CHART. I WENT OVER THE RISKS, ALTERNATIVES, AND BENEFITS ASSOCIATED WITH THIS PROCEDURE. THE PATIENT WOULD LIKE TO PROCEED AND GIVE CONSENT TO PERFORMED THE PROCEDURE. THE PATIENT DENIES UNEXPLAINABLE WEIGHT LOSS, FEVER, CHILLS, OR NEW CHANGES IN URINARY OR BOWEL CONTROL DESCRIPTION OF PROCEDURE THE PATIENT WAS BROUGHT TO THE PROCEDURE ROOM AND PLACED IN THE PRONE POSITION. THE CERVICOTHORACIC AREA WAS CLEANED WITH BETADINE SOLUTION AND DRAPED ASEPTICALLY. THE PROCEDURE WAS DONE UNDER STERILE CONDITIONS. I CHECKED LATERALITY AND THE LEVEL WHERE THE PROCEDURE WAS GOING TO BE PERFORMED WITH THE PATIENT AND THE SUPPORTING STAFF AT THE MOMENT OF THE TIME OUT IN THE PROCEDURE ROOM. UNDER FLUOROSCOPIC GUIDANCE, THE TARGET WAS SELECTED AT THE INTERLAMINAR LEVEL OF C7-T1. LIDOCAINE WAS USED TO NUMB THE SKIN AND THE SUBCUTANEOUS TISSUE BELOW IT. EPIDURAL TUOHY NEEDLE 17-GAUGE WAS ADVANCED UNDER FLUOROSCOPIC GUIDANCE AND FOLLOWING PATIENT FEEDBACK UNTIL THE EPIDURAL SPACE WAS REACHED 6 CM DEEP INTO THE SKIN BY THE LOSS OF RESISTANCE TECHNIQUE. ISOVUE M DYE 30%, 0.25 ML, WAS INJECTED SHOWING ADEQUATE SPREAD OF THE DYE. THEN, A SOLUTION OF 3 ML OF NORMAL SALINE WITH DEPO-MEDROL 60 MG WAS INJECTED SLOWLY FOLLOWING PATIENT FEEDBACK. THERE WAS NO EVIDENCE OF BLOOD, PARESTHESIA OR CEREBROSPINAL FLUID DURING THE PROCEDURE. THE PATIENT WAS SENT TO THE RECOVERY ROOM. THE PATIENT WAS MOVING THE EXTREMITIES AND DOING WELL. THERE WAS NO COMPLICATION DURING THE PROCEDURE. FLUOROSCOPY TIME WAS 14 SECONDS POST PROCEDURE NOTE THE PATIENT WILL BE SEEN IN A FOLLOW UP IN THE NEXT FEW WEEKS. INSTRUCTIONS WERE GIVEN, QUESTIONS WERE ANSWERED, AND THE PATIENT EXPRESSED UNDERSTANDING AND AGREES WITH THE PLAN. I, BRITTA VENTURA, DOCUMENTED THE ABOVE INFORMATION ACTING A SCRIBE FOR DR. ISLAS. I HAVE REVIEWED THE ABOVE DOCUMENT, WRITTEN BY BRITTA VARGAS AND I VERIFY THAT IT IS ACCURATE DIAGNOSTIC IMAGING [facility] FLUORO GUIDE SPINE INJECTION (PAIN)[id number] PROCEDURE CODES 09139 CERVICAL/THORACIC W/ IMAGING 6045F RADXPS IN END [id number] PXD DISPOSITION & COMMUNICATION FOLLOW UP 3 WEEKS ELECTRONICALLY SIGNED BY MARY LOU ISLAS MD ON 01/18/2017 AT 11:15 AM EST DISCLAIMER : THIS IS A VISIT SUMMARY EXTRACTED FROM THE [employer] CHART. IT IS NOT A COPY OF THE [email or web address] PROGRESS NOTE. MTDD
== END ==
LOC: M PAIN 11:45
PROVIDERS: ATTEND Anesthesiology
DX: G89.29 Other chronic pain (principal); M50.13 Cervical disc disorder with radiculopathy, cervicothoracic region; F41.9 Anxiety disorder, unspecified; F32.9 Major depressive disorder, single episode, unspecified; F43.10 Post-traumatic stress disorder, unspecified; F11.11 Opioid abuse, in remission; Z91.030 Bee allergy status; Z79.899 Other long term (current) drug therapy; Z87.891 Personal history of nicotine dependence; Z91.5 Personal history of self-harm
CPT/HCPCS: 62321; J1030; Q9967

== ENCOUNTER 2017-01-27 11:28 | Outpatient (RCR) | payer OTHER ==
[~2017-01-27 11:28] MED LIST changes: -ISOVUE-M 300 61% 15ML VIAL (Q9967) As Ordered ONE; -LIDOCAINE 1% SDV INJ 30 ML VIAL As Ordered ONE; -diazePAM 5 MG TAB As Ordered ONE; -methylPREDNISolone SUSP 40 MG/ML (DEPO-medrol) VIAL (J1030) As Ordered ONE
== END 2017-02-04 ==
LOC: M PT 11:28
PROVIDERS: ATTEND Orthopaedic Surgery Sports Medicine
DX: Z01.818 Encounter for other preprocedural examination (principal); Z51.89 Encounter for other specified aftercare; M25.561 Pain in right knee; M25.562 Pain in left knee

== ENCOUNTER 2017-02-01 13:00 | Outpatient (RCR) | payer OTHER | END 2017-02-04 | LOC: M OUTALCOH 13:00 | PROVIDERS: ATTEND Psychiatry & Neurology Psychiatry | DX: F11.20 Opioid dependence, uncomplicated (principal); F17.200 Nicotine dependence, unspecified, uncomplicated ==

== ENCOUNTER → 2017-02-02 | Outpatient (REF) | payer OTHER, MEDICAID ==
[2017-02-05 00:07] LABS: BENZODIAZEPINES, URINE SCREEN Negative ng/mL (Cutoff=200); METHADONE, URINE SCREEN Negative ng/mL (Cutoff=300); pH, URINE 6.1 (4.5-8.9)
== END ==
LOC: M LAB REF 12:44
PROVIDERS: ATTEND Family Medicine Addiction Medicine
DX: F19.10 Other psychoactive substance abuse, uncomplicated (principal)

== ENCOUNTER 2017-02-08 14:48 | Outpatient (RCR) | payer OTHER | END 2017-03-07 | LOC: M OUTALCOH 14:48 | DX: F11.20 Opioid dependence, uncomplicated (principal); F17.200 Nicotine dependence, unspecified, uncomplicated ==

== ENCOUNTER → 2017-02-09 | Outpatient (REF) | payer OTHER, MEDICAID | LOC: M LAB REF 17:25 | PROVIDERS: ATTEND Family Medicine Addiction Medicine | DX: F19.10 Other psychoactive substance abuse, uncomplicated (principal) ==

== ENCOUNTER → 2017-02-16 | Outpatient (CLI) | payer OTHER ==
--- NOTE | 2017-03-06 01:30 | ECWPNPC ---
PATIENT NAME: HANANE RAPP : 1975 GENDER: FEMALE VISIT DATE: 02/16/2017 DISCHARGE DATE: 02/16/17 1537 VISIT LOCKED DATE TIME: PHYSICIAN: GUME CANO RESOURCE: GUME CANO REASON FOR APPOINTMENT 1. POST CE HISTORY OF PRESENT ILLNESS HISTORY OF PRESENT ILLNESS: PAIN THE PATIENT DESCRIBES THE PAIN... FALL RISK SCREENING: SCREENING :NO FALLS IN THE PAST YEAR CURRENT MEDICATIONS TAKING SUBOXONE 8-2 MG FILM SUBLINGUAL BID TAKING LAMOTRIGINE 200 MG TABLET 400MG IN AM/ 200 AT NIGHT ORAL TAKING IBUPROFEN 600 MG TABLET ORAL EVERY 6 HRS NEEDED TAKING SUCRALFATE 1 GM TABLET ORAL FOUR TIMES DAILY NEEDED TAKING GABAPENTIN 800 MG TABLET ORAL TID TAKING PRAZOSIN HCL 1 MG CAPSULE 5MG AND 1MG CAP FOR TOTAL OF 6MG DOSE ORAL BEDTIME TAKING VITAMIN D (ERGOCALCIFEROL) 20227 UNIT CAPSULE ORAL WEEKLY TAKING OMEPRAZOLE 40 MG CAPSULE DELAYED RELEASE ORAL ONCE DAILY PRN TAKING TOPAMAX 200 MG TABLET 1 TABLET ORALLY IN A.M. & AT BEDTIME TAKING LYRICA 200 MG CAPSULE 1 CAPSULE ORALLY THREE TIMES DAILY MDD=3 TAKING SOMA 350 MG TABLET 1 TABLET NEEDED ORALLY DAILY AT HS MDD=1 TAKING METHOCARBAMOL 750 MG TABLET 1 TAB ORALLY EVERY 8 HRS TAKING SEROQUEL 50 MG TABLET 1 TABLET ORALLY ONCE A DAY UNKNOWN VENTOLIN HFA 108 (90 BASE) MCG/ACT AEROSOL SOLUTION INHALATION DIRECTED UNKNOWN REXULTI 1 MG TABLET 1 TABLET ORALLY ONCE A DAY MEDICATION LIST REVIEWED AND RECONCILED WITH THE PATIENT PAST MEDICAL HISTORY RIGHT KNEE WORSENING ARTHRITIS ANXIETY / DEPRESSION / PTSD/ SUICIDE ATTEMPT AUGUST 2013 OPIATE ABUSE PSORIASIS FIBRAMYALGIA HARD OF HEARING ALLERGIES BEE STINGS: ANAPHYLAXIS: ALLERGY SOCIAL HISTORY GENERAL: TOBACCO USE ARE YOU A:FORMER SMOKER HOW LONG HAS IT BEEN SINCE YOU LAST SMOKED?3-6 MONTHS ALCOHOL SCREENING POINTS0 INTERPRETATIONNEGATIVE RECREATIONAL DRUG USE DRUG USE?NO CAFFEINE CAFFEINE USE?YES HOW OFTEN AND HOW MUCH? DAILY USE DRUZE [id number] HINDU LEARNING BARRIERS / SPECIAL NEEDS BARRIERS TO LEARNING?NO HEARING IMPAIRED?NO VISION IMPAIRED?YES : WEARS CORRECTIVE LENSES TO READ READINESS TO LEARN?YES LEARNING PREFERENCES?NO SPECIAL DEVICES?YES : SOMETIMES USES A CANE TO WALK GUEST LAUNDRY ATTENDANT NEEDED?NO PAIN CLINIC PFS, CLERGY, PUBLIC HEALTH REFERRALS PFS REFERRAL NEEDED?NO CLERGY REFERRAL NEEDED?NO PUBLIC HEALTH REFERRAL NEEDED?NO WAS THE PROVIDER NOTIFIED OF ANY PERTINENT INFO?YES HAS THE PATIENT BEEN EDUCATED REGARDING HIS/HER PLAN OF CARE?YES PLEASE DOCUMENT ANY ADDTIONAL DETAILS. TRIGGER POINT INJECTIONS NECK AND LOW BACK HAS THE PATIENT BEEN EDUCATED REGARDING PAIN, THE RISK FOR PAIN, THE IMPORTANCE OF EFFECTIVE PAIN MANAGEMENT, AND THE PAIN ASSESSMENT PROCESS?YES PATIENT: ____. ADVANCE DIRECTIVES HEALTH CARE PROXY?YES NAME OF HCP VAUGHN KEE SISTER DO YOU HAVE A COPY WITH YOU?NO DO YOU HAVE A DNR?NO WOULD YOU LIKE MORE INFORMATION?NO LIVING WILL?NO WOULD YOU LIKE MORE INFORMATION?NO POWER OF JEWEL STRINGER?NO WOULD YOU LIKE MORE INFORMATION?NO PAIN IS MORE IN THE NECK NOW AND NUMBNESS TO FINGERS ON BOTH HANDS, PAIN DOWN RIGHT SHOULDER. REVIEW OF SYSTEMS REVIEWED BY: PROVIDER: . CONSTITUTIONAL: ANY CHANGE IN YOUR MEDICAL CONDITION? NO . CHILLS NO . FEVER NO . INFECTION: DO YOU HAVE NEW INFECTIONS? NO . DO YOU HAVE HISTORY OF MRSA? NO . MUSCULOSKELETAL: ANY NEW PATTERNS OF PAIN OR NUMBNESS? NO . GASTROENTEROLOGY: ANY NEW CHANGE IN BOWEL CONTROL? NO . GENITOURINARY: ANY NEW CHANGE IN BLADDER CONTROL? NO . IS THERE A CHANCE YOU COULD BE ? NO . HEMATOLOGY/LYMPH: DO YOU TAKE ANY BLOOD THINNERS? (FOR EXAMPLE- COUMADIN, PLAVIX, AGGRENOX, PLATEL, PRADAXA, OR XARELTO) NO . WHEN WAS YOUR LAST DOSE? DATE: TIME: . NEUROLOGY: HAVE YOU FALLEN IN THE PAST 6 MONTHS? NO . ANY NEW EXTREMITY NUMBNESS OR WEAKNESS? NO . CARDIOLOGY: DO YOU HAVE A PACEMAKER OR DEFIBRILLATOR? NO . RESPIRATORY: HAVE YOU BEEN SICK IN THE PAST WEEK? NO . FEVER NO . FLU LIKE SYMPTOMS? NO . COUGH NO . INTEGUMENTARY: DO YOU HAVE ANY RASHES OR OPEN SORES? NO . ALLERGIC/IMMUNO: ARE YOU ALLERGIC TO SHELLFISH OR IV DYE? NO . ANY NEW ALLERGIES? NO . PSYCHIATRIC: DO YOU HAVE THOUGHTS OF HURTING YOURSELF OR SOMEONE ELSE? NO . ARE YOU ABUSED, NEGLECTED, OR IN AN UNSAFE ENVIRONMENT? NO . ENDOCRINOLOGY: ARE YOU DIABETIC? NO . OTHER: DO YOU NEED ANY PRESCRIPTIONS? YES . IF YES, PLEASE LIST: METHOCARBOMAL . ANY NEW PROBLEMS WITH YOUR MEDICATIONS? NO . WHEN DID YOU LAST EAT? ____ . WHEN DID YOU LAST DRINK? ____ . WHAT DID YOU LAST DRINK? ____ . NAME OF PERSON DRIVING YOU HOME? ____ . DO YOU HAVE ANY OTHER QUESTIONS OR CONCERNS NO . VITAL SIGNS WT 146.6 LBS, HT 61", BMI 27.70 INDEX, BP 100/63 MM HG, HR 89 /MIN, RR 16 /MIN, TEMP 97.6 F, OXYGEN SAT % 96%, NA INITIALS TL 1419, REVIEWED BY: CM. EXAMINATION GENERAL EXAMINATION: GENERAL APPEARANCE:USING ARTIFICIAL TANNING SOLUTION - . PSYCHALERT , ORIENTED X 3 , ANXIOUS. LUNGS:CLEAR TO AUSCULTATION BILATERALLY. HEART:HEART RATE REGULAR. MUSCULOSKELETAL:MUSCLE STRENGTH TESTING 5/5 BILATERAL UPPER AND LOWER EXTREMITIES. , TRIGGER POINTS AND TIGHT FIBROUS BANDS IDENTIFIED OVER CERVICAL PARASPINOUS MUSCLES AND ACROSS THE TRAPEZIUS BILATERALLY.IMPROVED SHOULDER SHRUG NOTED. ASSESSMENTS CERVICAL DISC DISORDER WITH RADICULOPATHY, CERVICOTHORACIC REGION - M50.13 (PRIMARY) MYALGIA - M79.1 TREATMENT CERVICAL DISC DISORDER WITH RADICULOPATHY, CERVICOTHORACIC REGION REFILL SOMA TABLET, 350 MG, 1 TABLET NEEDED, ORALLY, BID MDD=2, 30 DAY(S), 60, REFILLS 2 TRIGGER POINT 3 + GUME CAMILO 02/16/2017 3:17:58 PM > NECK AND SHOULDERS NOTES: TRIGGER POINT INJECTION MATERIAL WAS PRINTED. PROCEDURE CODES FA211 ESTABILISHED PATIENT [facility] CHARGE DISPOSITION & COMMUNICATION FOLLOW UP AFTER INJECTION (REASON: CHECK AUTH FOR TPI) ELECTRONICALLY SIGNED BY SUMI KIM ON 03/04/2017 AT 01:01 PM EST DISCLAIMER : THIS IS A VISIT SUMMARY EXTRACTED FROM THE [employer] CHART. IT IS NOT A COPY OF THE [employer] PROGRESS NOTE. SAMANTHAD
== END ==
LOC: M PAIN 14:30
PROVIDERS: ATTEND Nurse Practitioner Family
DX: M50.13 Cervical disc disorder with radiculopathy, cervicothoracic region (principal); M79.1 Myalgia; Z79.899 Other long term (current) drug therapy; Z87.891 Personal history of nicotine dependence; Z91.030 Bee allergy status

== ENCOUNTER → 2017-02-17 | Outpatient (REF) | payer OTHER | LOC: M LAB REF 11:49 | PROVIDERS: ATTEND Family Medicine Addiction Medicine | DX: F19.10 Other psychoactive substance abuse, uncomplicated (principal) ==

== ENCOUNTER → 2017-03-10 | Outpatient (REF) | payer OTHER | LOC: M LAB REF 12:59 | DX: F19.10 Other psychoactive substance abuse, uncomplicated (principal) ==

== ENCOUNTER 2017-03-15 09:43 | Outpatient (RCR) | payer OTHER | END 2017-04-07 | LOC: M OUTALCOH 09:43 | DX: F11.20 Opioid dependence, uncomplicated (principal); F17.200 Nicotine dependence, unspecified, uncomplicated ==

== ENCOUNTER → 2017-03-24 | Outpatient (REF) | payer OTHER, MEDICAID | LOC: M LAB REF 15:40 | DX: F19.10 Other psychoactive substance abuse, uncomplicated (principal) ==

== ENCOUNTER → 2017-04-06 | Outpatient (CLI) | payer OTHER ==
[~2017-04-06] MED LIST changes: -/ACETCOD2T PO; -BENA25CA4 PO; -BIOT50004 PO; +BUPIVACAINE HCL 0.25% 10 ML VIAL As Ordered; +BUPIVACAINE HCL 0.25% 30 ML VIAL As Ordered; -CARA1TAB6 PO; -CLONAZEPAM; -CYPROHEPTADINE OR; -EFFEXOR XR PO; -GABA800T PO; -HAIR SKIN AND NAILS OR; -HYDR10EL PO; -IBUP600T PO; -IBUP80TA PO; -KEFL500C17 PO; -KEPP1TAB PO; -KLON1TAB PO; -KLONOPIN PO; -LAMO200T PO; -LAMO50TA PO; -LATU1TAB PO; -LEVA750T7 PO; -LORA2TAB PO; -LYRI200C PO; -LYRI225C PO; -LYRI300C PO; -METH1TAB40 PO; -MULTCAP PO; -MULTTAB4 PO; -NEUR100C PO; -NEUR300C PO; -OMEP40CA2 PO; -PERC5TAB8 OR; -PERC5TAB8 PO; -PERCOCET; -PRAZ5CAP PO; -SERO200T2 PO; -SERO400T PO; -SERO50TA PO; -SUBO8MIS SL; -TIZA4TAB OR; -TOPI200T7 PO; -TRAM50TA2 OR; +TRIAMCINOLONE ACETONIDE SUSP 40 MG/ML VIAL (J3301) As Ordered; -ULTR50TA PO; -VENL150C43 PO; -VENL150T PO; -VENL37TA PO; -VICODIN; -VOLT1GEL TOP; -ZOLP-189 PO; -[UNRECOGNIZED DRUG - OTHER]; +diazePAM 5 MG TAB As Ordered; -effexor PO; -effexor XR OR; -epipen; -pristiq PO; -suboxone OR; -tylenol #4; -tylenol #4 OR
== END ==
LOC: M PAIN 13:45
DX: G89.29 Other chronic pain (principal); M79.1 Myalgia; Z79.899 Other long term (current) drug therapy; Z87.891 Personal history of nicotine dependence; Z91.030 Bee allergy status
CPT/HCPCS: J3301

== ENCOUNTER → 2017-04-07 | Outpatient (REF) | payer OTHER, MEDICAID | LOC: M LAB REF 19:17 | DX: F19.10 Other psychoactive substance abuse, uncomplicated (principal) ==

== ENCOUNTER 2017-04-12 14:21 | Emergency (ER) | payer OTHER, MEDICAID | END 2017-04-12 14:40 | disposition left against medical advice (07) | LOC: M ED 14:21 | DX: Z53.21 Procedure and treatment not carried out due to patient leaving prior to being seen by health care provider (principal) ==

== ENCOUNTER → 2017-04-21 | Outpatient (REF) | payer OTHER, MEDICAID | LOC: M LAB REF 19:07 | DX: F19.10 Other psychoactive substance abuse, uncomplicated (principal) | CPT/HCPCS: 80362 ==

== ENCOUNTER → 2017-04-29 | Outpatient (CLI) | payer OTHER | LOC: M PAIN 13:30 | DX: M79.1 Myalgia (principal); M50.13 Cervical disc disorder with radiculopathy, cervicothoracic region; Z79.899 Other long term (current) drug therapy; Z98.84 Bariatric surgery status; Z79.891 Long term (current) use of opiate analgesic; Z91.030 Bee allergy status | CPT/HCPCS: G0463 ==

== ENCOUNTER → 2017-05-04 | Outpatient (REF) | payer OTHER, MEDICAID ==
[2017-05-13 00:10] LABS: AMPHETAMINE SCREEN, URINE Negative ng/mL (Cutoff=1000); BARBITURATES SCREEN, URINE Negative ng/mL (Cutoff=200); BENZODIAZEPINES, URINE SCREEN Negative ng/mL (Cutoff=200); CANNABINOID SCREEN, URINE Negative ng/mL (Cutoff=20); COCAINE SCREEN, URINE Negative ng/mL (Cutoff=300); CREATININE, URINE 96.3 mg/dL (20.0-300.0); FENTANYL URINE SCREEN Negative pg/mL (Cutoff=2000); METHADONE, URINE SCREEN Negative ng/mL (Cutoff=300); NALOXONE RESULT Positive (.); OPIATE SCREEN, URINE Negative ng/mL (Cutoff=300); OXYCODONE, SCREEN, URINE Negative ng/mL (Cutoff=100); PCP SCREEN, URINE Negative ng/mL (Cutoff=25); SPECIFIC GRAVITY, URINE 1.021 (.); URINE BUPRENORPHINE Positive (.); URINE BUPRENORPHINE Positive (Cutoff=10); URINE BUPRENORPHINE See Final Results ng/mL (Cutoff=10); URINE BUPRENORPHINE CONFIRM 476 ng/mL (Cutoff=10); URINE NORBUPRENORPHINE Positive (.); URINE NORBUPRENORPHINE CONFIRM 346 ng/mL (Cutoff=10); pH, URINE 6.1 (4.5-8.9)
== END ==
LOC: M LAB REF 05-05 13:48
DX: F19.10 Other psychoactive substance abuse, uncomplicated (principal)
CPT/HCPCS: G0480

== ENCOUNTER 2017-05-05 14:54 | Emergency (ER) | payer OTHER, MEDICAID | END 2017-05-05 16:00 | disposition home or self-care (01) | LOC: M ED 14:54 | DX: F43.0 Acute stress reaction (principal); Z79.899 Other long term (current) drug therapy | CPT/HCPCS: 99282 ==

== ENCOUNTER → 2017-06-03 | Outpatient (CLI) | payer OTHER | LOC: M PAIN 10:15 | DX: G89.29 Other chronic pain (principal); M79.1 Myalgia; M25.511 Pain in right shoulder; M25.512 Pain in left shoulder; M54.5 Low back pain; M17.11 Unilateral primary osteoarthritis, right knee; F32.9 Major depressive disorder, single episode, unspecified; F41.9 Anxiety disorder, unspecified; F43.10 Post-traumatic stress disorder, unspecified; L40.9 Psoriasis, unspecified; F11.20 Opioid dependence, uncomplicated; Z79.899 Other long term (current) drug therapy; Z91.030 Bee allergy status; Z91.5 Personal history of self-harm; Z87.891 Personal history of nicotine dependence; Z98.84 Bariatric surgery status | CPT/HCPCS: J3301 ==

== ENCOUNTER → 2017-07-02 | Outpatient (CLI) | payer OTHER | END | disposition home or self-care (01) | LOC: M PAIN 09:45 | DX: G89.29 Other chronic pain (principal); M50.13 Cervical disc disorder with radiculopathy, cervicothoracic region; M79.7 Fibromyalgia; F41.9 Anxiety disorder, unspecified; F33.9 Major depressive disorder, recurrent, unspecified; F43.10 Post-traumatic stress disorder, unspecified; L40.9 Psoriasis, unspecified; Z79.891 Long term (current) use of opiate analgesic; Z79.899 Other long term (current) drug therapy; Z91.030 Bee allergy status; Z87.891 Personal history of nicotine dependence | CPT/HCPCS: G0463 ==

== ENCOUNTER → 2017-07-19 | Outpatient (CLI) | payer OTHER | LOC: M PAIN 14:15 | DX: G89.29 Other chronic pain (principal); M54.5 Low back pain; M79.1 Myalgia; M17.11 Unilateral primary osteoarthritis, right knee; L40.9 Psoriasis, unspecified; Z79.899 Other long term (current) drug therapy; Z91.030 Bee allergy status; Z86.59 Personal history of other mental and behavioral disorders | CPT/HCPCS: J3301 ==

== ENCOUNTER 2017-09-08 17:41 | Emergency (ER) | payer OTHER ==
[2017-09-08] MEDS ORDERED: NALOXONE INJ 2 MG/2 ML SYRINGE (J2310) As Ordered (17:46)
[2017-09-08] MEDS ORDERED: EPINEPHrine 1MG/10ML SYRINGE 1.5IN (18:49)
== END 2017-09-08 22:54 | disposition home or self-care (01) ==
LOC: M ED 22:54
DX: I46.9 Cardiac arrest, cause unspecified (principal); Z79.899 Other long term (current) drug therapy; Z98.84 Bariatric surgery status
CPT/HCPCS: 92950

== ENCOUNTER → 2017-09-09 | Outpatient (REF) | LOC: M LAB 10:19 | DX: Z02.89 Encounter for other administrative examinations (principal) ==